=== PATIENT | male | born 1950 | race Caucasian/White ===

== ENCOUNTER 2019-05-03 11:02 | Inpatient (IN) ==
--- NOTE | 2019-05-03 11:25 | CT Scan Report ---
CT head/brain wo con CLINICAL HISTORY: 68 years-old Male presenting with Stroke evaluation. TECHNIQUE: Multidetector CT imaging of the head was performed without the use of intravenous contrast . IV contrast: None. One or more dose lowering techniques were used consistent with the principles of ALARA (as low as reasonably achievable), including automatic exposure control, mA or kV adjustment t o individual patient size, and/or use of iterative reconstruction. COMPARISON: None. CT DOSE (mGy.cm): The estimated cumulative dose is 614.27 mGy.cm. FINDINGS: Photograph Inspector topogram: Unremarkable. Ventricles and sulci normal in size. No hemorrhage. Brain parenchyma normal in appearance with preser nato lara-white differentiation. No acute territorial infarct. No mass effect or midline shift. No ext ra-axial fluid collection. Paranasal sinuses and mastoid air cells clear. Calvarium intact. IMPRESSION: 1. No acute intracranial abnormality. Electronically signed by: Christopher Hernandez M.D. 05/03/2019 11:23 AM
[2019-05-03] MEDS ORDERED: RECOMBINANT IV STA (11:28)
[2019-05-03] MEDS ORDERED: LABETALOL HCL IV 5 MG/ML 20ML IV STA ×2 (11:28→11:51)
[2019-05-03] MEDS ORDERED: ALTEPLASE IV STA (11:28)
[2019-05-03] MEDS ORDERED: ALTEPLASE For Stroke IV STA (11:31)
[2019-05-03 11:33] LABS: Basophils # (auto) 0.02 K/uL (0-0.2); Basophils % (auto) 0.2 %; Eosinophils # (auto) 0.06 K/uL (0-0.5); Eosinophils % (auto) 0.6 %; Hematocrit (blood only) 41.5 % (42-52); Hemoglobin 14.1 g/dL (14.0-18.0); Immature Granulocytes # (auto) 0.04 K/uL (0.00-0.02); Immature Granulocytes % (auto) 0.4 %; Lymphocytes # (auto) 2.25 K/uL (1.2-3.4); Lymphocytes % (auto) 23.4 %; Mean Platelet Volume 8.7 fL (7.4-10.4); Monocytes # (auto) 0.58 K/uL (0.11-0.59); Neutrophils # (auto) 6.66 K/uL (1.4-6.5); Neutrophils % (auto) 69.4 %; Platelet Count 420 K/uL (130-400); RDW Coefficient of Variation 13.9 % (11.5-14.5); RDW Standard Deviation 41.5 fL (36.4-46.3); Red Blood Count 5.06 M/uL (4.7-6.1); White Blood Count 9.61 K/uL (4.8-10.8)
[2019-05-03 11:43] LABS: INR 1.1 (0.9-1.1); Partial Thromboplastin Time 28.2 Seconds (21.0-31.0); Prothrombin Time 10.9 Seconds (9.0-12.0)
[2019-05-03] MEDS ORDERED: ALTEPLASE, RECOMBINANT 72 MG in EMPTY BAG 0 ML IV ONE (11:45)
[2019-05-03] MEDS ORDERED: RECOMBINANT IV ONE (11:45)
[2019-05-03] MEDS ORDERED: ALTEPLASE IV ONE (11:45)
[2019-05-03 11:51] LABS: Albumin Level 3.4 gm/dl (3.4-5.0); BUN Creatinine Ratio 14.5 (10-20); Calcium 9.7 mg/dl (8.5-10.1); Est GFR (African American) 99.3; Est GFR (Non-African American) 85.7; Magnesium 2.2 mg/dl (1.8-2.4)
[2019-05-03 11:58] LABS: Albumin Globulin Ratio 0.7 (0.9-2); Bilirubin,Total 0.4 mg/dl (0.2-1); Globulin 4.9 gm/dl (2.5-4.0); Total Protein 8.3 gm/dl (6.4-8.2); Troponin I 0.272 ng/ml (0-0.045)
[2019-05-03] MEDS ORDERED: OPTIRAY 320 125ml IV PRN (12:27)
--- NOTE | 2019-05-03 12:41 | CT Scan Report ---
CT angio head w con CLINICAL HISTORY: 68 years-old Male with ? cva. Acute strokelike symptoms COMPARISON STUDY: CT head and CTA head neck of same day TECHNIQUE: Following the IV administration of 120 cc of Optiray 320, CT angiogram of the brain was pe rformed from the skull base to the vertex. Images are reviewed in the axial, sagittal, and coronal pl anes. 3-D MIPS images are created and assessed. IV contrast was administered without complication. A dose lowering technique was utilized adhering to the principles of ALARA. CT DOSE: 595.63 mGy.cm FINDINGS: CT ANGIOGRAM OF THE BRAIN: The imaged bilateral internal carotid arteries are patent. Mild calcified plaque about the cavernous and clinoid segments of the bilateral internal carotid arteries and proximal portion of the right M1 segment without high-grade stenosis. The bilateral anterior and middle cerebral arteries are also pat ent. The vertebrobasilar system and posterior cerebral arteries are widely patent. There is no aneury sm, high-grade stenosis, or proximal branch occlusion identified. Dural sinuses appear patent. Densely noted is moderate polypoid mucosal thickening of the right maxillary sinus. Ex vacuo ventricu lomegaly changes with age-related involutional change. Punctate focus of air about the left cavernous sinus. IMPRESSION: Remarkable CTA of the head without aneurysm, dissection, high-grade stenosis or proximal branch occlusion. The above report was generated using voice recognition software. It may contain grammatical, syntax o r spelling errors. Electronically signed by: Francisco Ramos M.D. 05/03/2019 12:40 PM
--- NOTE | 2019-05-03 12:43 | CT Scan Report ---
NECK CTA HISTORY: Left facial droop. ? cva TECHNIQUE: Multiaxial CT images of the neck were performed following the intravenous administration o f contrast to evaluate the major cervical vessels. Maximum intensity projection images were also obta ined. All measurements were calculated based on NASCET criteria. A dose lowering technique was utili zed adhering to the principles of ALARA. COMPARISON STUDY: None. FINDINGS: The aortic arch and proximal great vessels are widely patent. The bilateral common carotid arteries and right internal carotid artery are widely patent. Mild calcified plaque within the bilat eral carotid bulbs. Approximately 30 % narrowing at the takeoff of the left internal carotid artery. However, the remaining left internal carotid artery is widely patent. Mild focal narrowing at the brooke gins of the bilateral vertebral arteries. The remaining vertebral arteries are widely patent. Mucosal thickening and a small fluid level within the right maxillary sinus. IMPRESSION: 1. Mild narrowing of approximately 30% at the takeoff of the left internal carotid artery. Otherwise, the remaining left internal carotid artery, right internal carotid artery, and bilateral common goldsmith tid arteries are widely patent. 2. Mild focal narrowing at the origins of the bilateral vertebral arteries. The remaining vertebral a rteries are patent. 3. Acute on chronic right maxillary sinusitis. Electronically signed by: Dean Arroyo M.D. 05/03/2019 12:42 PM
[2019-05-03 12:49] LABS: Lyme Ab IgG w/WB Rflx Negative (Negative); Lyme Ab IgM w/WB Rflx Negative (Negative)
[2019-05-03] MEDS ORDERED: PHARMACIST DISCHARGE MED REC CONSULT PRN (13:26)
--- NOTE | 2019-05-03 14:19 | Neurology Consultation ---
Date of Consultation May 03, 2019 Assessment & Plan (1) CVA (cerebral vascular accident): 1. CTA head and neck- no significant stenosis 2. TTE- pending read 3. MRI brain - evaluation area of stroke 4. tPa protocol - hold aspirin start for 24 hours/ repeat CT head 24 hours after tPa given 5. after 48 hours optimize HTN/HLD/ LDL <70 6. PT/OT speech for discharge needs 7. patient was not on aspirin prior to event- aspirin 81 mg and plavix 75 mg daily x 21 days then aspirin for a lifetime 8. will need cardiac monitoring as outpatient unless irregular rhythm is capture in patient further recommendations to follow Supervising Physician Co-Signing Physician Notes I have seen and discussed above patient with Dr Alexi Rodriguez, neurology I have seen, examined and interviewed this man and have reviewed his case with Prabha Jarvis along with her note above and have reviewed his imaging studies which include only CT imaging of his brain and extracranial intracranial circulation. He has been medically luis for about 4 years so it is not clear whether or not he has any significant pre-existing hypertension, dyslipidemia, glucose intolerance or other risk factors for could be small vessel disease episodic c ardiac arrhythmia or valvular disease Currently he has a left upper motor neuron facial paresis and mild dysarthria speech with no other demonstrable neurologic findings in the motor sphere and no sensory involvement or visual involvement He has received TPA and according to family members he is much improved from his status this morning when he presented to the emergency room with a fairly dense left upper motor neuron facial asymmetry and almost unintelligible speech Currently we will follow the standard post TPA protocol with imaging studies. 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 This is clearly a CVA likely involving the right hemisphere possibly localized to the right brainstem and management after TPA will probably consist of dual antiplatelet agents, obviously risk factor modification, to some degree of permissive hypertension until things clear up perhaps even a ZIO patch on an outpatient basis All this will become a little more clear with increasing time and the emergence of more diagnostic data Alexi Rodriguez MD History of Present Illness Reason for Consultation: CVA tPa administered Requesting Physician: Garfield Torre MD Attending Physician: Garfield Torre MD History of Present Illness Steven is a 68 year old male with no known medical issues (has not seen a MD in over 5 years). He was in his normal state of health when he woke this am. He went to work and started having difficulty speaking. He was on no chronic medications. He drove home and his brought him to the ED. A CT head and CTA head neck was ordered and there was not hemorrhage on scan. He arrived around 11a [place] [facility] [place] and he was administered tPa. He states the slurred speech has gotten better. he states family history of heart disease and stroke father in 80's. brother with heart disease on coumadin. He denies any one sided weakness, numbness tingling, vision changes, N, V, headache, bowel or bladder issues. Allergies Allergy/AdvReac Type Severity Reaction Status Date / Time No Known Allergies Allergy Mild Unverified 05/03/19 12:17 Home Medications Home Medications Medication Instructions Recorded Confirmed Type ibuprofen 200 mg PO QID PRN 05/03/19 05/03/19 History pseudoephedrine HCl [Sudafed] 30 mg PO Q6H PRN 05/03/19 05/03/19 History Patient History Medical History Hyperlipidemia (Chronic) Surgical History No pertinent past surgical history (Chronic) Family History Father Stroke, Onset Age: 82 Mother CHF (congestive heart failure) Other Heart disease No pertinent family history Social History Preferred Language: Mohawk Communication Ability: Effective Visual Impairment: No Limitations Hearing Ability: Normal Test Manager Required: No Beliefs That Will Affect Care: None marital status: marital status details: Current Living Situation: Spouse current occupational status: employed Other Information That Helps Us Care for You: No Feels Safe at Home: Yes Safety Concerns: Feels Safe At This Time Smoking Status: Never smoker Hx Alcohol Use: No Hx Substance Use: No Physical Exam Physical Exam: Physical Exam: Constitutional: appearance nourished, healthy and normal Ears, Nose, Mouth and Throat: mucous membranes moist, no injection and skin normal, eyes normal Cardiovascular: normal S-1 and S-2 and regular rate and rhythm Respiratory: clear to auscultation (CTA) and no rales, ronchi or wheeze Musculoskeletal: no peripheral edema and good distal pulses Skin: no stigmata of neurocutaneous disease noted and normal and intact Eyes: extraocular muscles intact (EOMI) and pupils equal, round and reactive to light (PERRL), no gross peripheral vision loss NEUROLOGIC EXAMINATION: Mental status: Alert and interactive Oriented to full date, [facility], know home address and and daughters name in room, 2019 Oriented to person Speech dysphasia Cranial Nerves left sided facial droop tongue slight deviation to left Reflexes: Deep tendon reflexes were symmetrical and graded 2/5. upgoing toes Sensory: no sensory deficits to light and cool touch Coordination: finger to nose no bi pass Gait/Stance: Posture lying in bed no issues with repositioning self Strength: biceps triceps hand precision lens polisher 5/5 bilaterally, hip flex plantar flex ext 5/5 bilaterally Results & Data Vital Signs (Past 12 Hours) Vital Signs Temp Pulse Pulse Resp BP BP Pulse Ox 05/03/19 13:55 98 H 18 192/105 H 98 05/03/19 13:40 36.8 C 87 18 186/95 H 95 05/03/19 13:38 36.8 C 90 18 194/113 H 97 05/03/19 13:26 87 16 193/104 H 97 05/03/19 13:25 36.8 C 87 16 193/104 H 97 05/03/19 12:55 36.5 C 83 23 162/89 H 95 05/03/19 12:54 83 21 96 05/03/19 12:53 83 21 96 05/03/19 12:52 83 25 H 97 05/03/19 12:50 80 20 165/86 H 95 05/03/19 12:49 81 22 96 05/03/19 12:48 81 15 98 05/03/19 12:47 79 23 96 05/03/19 12:46 80 19 155/85 H 97 05/03/19 12:45 77 19 96 05/03/19 12:44 73 24 97 05/03/19 12:43 73 16 97 05/03/19 12:42 76 24 97 05/03/19 12:41 72 23 96 05/03/19 12:40 75 18 158/89 H 95 05/03/19 12:39 76 18 97 05/03/19 12:38 75 22 95 05/03/19 12:37 78 21 05/03/19 12:36 73 167/87 H 05/03/19 12:20 175/98 H 96 05/03/19 12:18 68 17 95 05/03/19 12:17 71 16 96 05/03/19 12:16 70 20 96 05/03/19 12:15 78 18 181/113 H 96 05/03/19 12:14 71 28 H 96 05/03/19 12:13 72 24 96 05/03/19 12:12 71 20 190/119 H 96 05/03/19 12:11 68 20 96 05/03/19 12:10 71 18 97 05/03/19 12:09 72 22 96 05/03/19 12:08 71 21 193/105 H 96 05/03/19 12:07 70 25 H 189/106 H 97 05/03/19 12:06 69 18 96 05/03/19 12:04 70 18 194/107 H 95 05/03/19 12:03 72 18 192/114 H 96 05/03/19 12:02 70 26 H 178/124 H 95 05/03/19 12:01 67 24 182/104 H 95 05/03/19 12:00 66 23 94 05/03/19 11:59 68 22 186/105 H 95 05/03/19 11:58 68 22 96 05/03/19 11:57 67 19 96 05/03/19 11:56 69 13 96 05/03/19 11:55 68 18 96 05/03/19 11:54 67 24 94 05/03/19 11:53 65 27 H 95 05/03/19 11:52 64 16 96 05/03/19 11:51 69 18 95 05/03/19 11:50 68 21 168/94 H 96 05/03/19 11:49 67 25 H 95 05/03/19 11:48 69 17 192/104 H 05/03/19 11:47 71 20 188/124 H 05/03/19 11:46 71 23 05/03/19 11:45 72 19 06/05/19 11:44 66 68 23 192/111 H 192/111 H 95 05/03/19 11:43 68 15 05/03/19 11:42 69 26 H 05/03/19 11:41 73 24 05/03/19 11:40 72 24 193/106 H 05/03/19 11:39 85 30 H 195/117 H 05/03/19 11:38 72 26 H 201/119 H 95 05/03/19 11:31 75 22 206/123 H 97 05/03/19 11:30 75 75 24 206/123 H 97 05/03/19 11:25 79 21 97 05/03/19 11:24 75 24 218/109 H 96 05/03/19 11:22 74 77 25 H 220/119 H 220/119 H 95 05/03/19 11:11 77 24 220/119 H 96 05/03/19 11:04 84 18 227/111 H 97 Laboratory Results Abnormal lab results 05/03/19 05/03/19 05/03/19 Range/Units 11:17 11:17 11:24 Hct 41.5 L (42-52) % Plt Count 420 H (130-400) K/uL Immature Gran # (Auto) 0.04 H (0.00-0.02) K/uL Neut # (Auto) 6.66 H (1.4-6.5) K/uL Glucose 108 H (70-99) mg/dl POC Glucose 103 H (70-99) Troponin I 0.272 H* (0-0.045) ng/ml Total Protein 8.3 H (6.4-8.2) gm/dl Globulin 4.9 H (2.5-4.0) gm/dl Albumin/Globulin Ratio 0.7 L (0.9-2) Diagnostic Findings CT head- No acute intracranial abnormality. CTA head- Remarkable CTA of the head without aneurysm, dissection, high-grade stenosis or proximal branch occlusion. CTA neck- Mild narrowing of approximately 30% at the takeoff of the left internal carotid artery. Otherwise, the remaining left internal carotid artery, right internal carotid artery, and bilateral common carotid arteries are widely patent. Mild focal narrowing at the origins of the bilateral vertebral arteries. The remaining vertebral arteries are patent. Acute on chronic right maxillary sinusitis. (1) CVA (cerebral vascular accident) CVA mechanism: unspecified Qualified Code(s): I63.9 - Cerebral infarction, unspecified
--- NOTE | 2019-05-03 14:38 | History & Physical Report ---
Date of Service May 03, 2019 Assessment & Plan (1) CVA (cerebral vascular accident): (2) Hypertensive emergency: This is a 68-year-old male who has not seen a physician for over 5 years who presents to [facility] secondary to left facial numbness, left facial droop, and aphasia that began at 830am. Given the abrupt symptom onset stroke alert was initiated. He was noted to be significantly hypertensive SBP greater than 220. He received 2 doses of IV labetalol 10 mg and BP decreased to 168. TPA was recommended and was administered at approximately 11:54 AM. In ED CBC relatively unremarkable, PT/INR 1.1, CMP unremarkable except for glucose 108, troponin 0 0.[address] Head without acute abnormality CTA head and neck- no significant stenosis Pt admitted to ICU under TPA protocol TTE pending Likely will not be able to perform MRI secondary to patient significantly claustrophobic and very tearful, relating it back to when he was in [place] Repeat CT head w/o contrast in am tPa protocol - hold aspirin start for 24 hours/ repeat CT head 24 hours after tPa given after 48 hours optimize HTN/HLD/ LDL <70 Lipid panel, A1C in a.m. NPO until seen and evaluated by speech PT/OT/ST consulted Patient was not on aspirin prior to event- aspirin 81 mg and plavix 75 mg daily x 21 days then aspirin for a lifetime High intensity statin atorvastatin 40 mg daily when cleared by ST Cardiac monitoring as outpatient, ZIOpatch (3) Elevated troponin: likely in setting of HTN emergency Pt without cardiac complaints ECG unchanged Trend troponin every 6 hours and repeat ECG Echocardiogram pending (4) Acute sinusitis: CT neck reveals acute on chronic maxillary sinusitis Patient does report sinus congestion for the past 10 days which has slowly been improving. He has been taking [id number] Sudafed. He is afebrile and WBC WNL Will recommend course of amoxicillin when cleared by speech therapy (5) DVT prophylaxis: SCDS/TEDS Disposition: to be determined, case management consulted Follow up: PCP Dr. Salmeron upon discharge, patient has not been seen in approximately 5 years per patient He will also need appropriate neurology follow-up Patient was seen and examined in collaboration with Dr. Perrin, please see addendum Starting 05/04/19 pt will be under the care of Dr. Torre History of Present Illness Chief Complaint: L facial numbness, facial droop and apashia starting at 8:30am Primary Care Provider: Tamir Salmeron MD This is a 68-year-old male who has not seen a physician for over 5 years who presents to [facility] secondary to left facial numbness, left facial droop, and aphasia that began at 830am. He denies any significant past medical history. At approximately 830am patient noticed some left facial numbness. He opted to present to work and developed significant postnasal drip and he was unable to clear it. Tongue also felt numb. Given symptoms he opted to drive himself home. This is when he noticed a left facial droop and noted garbled speech. He did not have any upper or lower extremity weakness or loss of bowel or bladder. He has otherwise been healthy except he does elicit for the past 10 days he has been having sinus congestion which has improved. He has been taking [id number], Sudafed, for symptom relief. He states approximately 1 month ago he had similar symptoms of left facial numbness that lasted 20 minutes but then resolved. "I didn't think anything of it." He states he took approximately 6 pills a day. He denies smoking, alcohol or ill icit drug use. 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 Given the abrupt symptom onset stroke alert was initiated. He was noted to be significantly hypertensive SBP greater than 220. He received 2 doses of IV labetalol 10 mg and BP decreased to 168. TPA was recommended and was administered at approximately 11:54 AM. Allergies Allergy/AdvReac Type Severity Reaction Status Date / Time No Known Allergies Allergy Mild Unverified 05/03/19 12:17 Home Medications Home Medications Medication Instructions Recorded Confirmed Type ibuprofen 200 mg PO QID PRN 05/03/19 05/03/19 History pseudoephedrine HCl [Sudafed] 30 mg PO Q6H PRN 05/03/19 05/03/19 History Past Med/Surg History Medical History Hyperlipidemia (Chronic) Surgical History No pertinent past surgical history (Chronic) Family History Father Stroke, Onset Age: 82 Mother CHF (congestive heart failure) Other Heart disease No pertinent family history Social History Preferred Language: Romanian Communication Ability: Effective Visual Impairment: No Limitations Hearing Ability: Normal 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 Physical Exam Physical Exam: Gen: WD/WN, M, NAD, sitting up in bed, pleasant but tearful, conversing easily, notable L facial droop which improved during exam but not resolved Head: Normocephalic, Atraumatic Eyes: Sclera normal, no conjunctival injection, PERRLA, EOMI ENT: Gross hearing intact, normal pharynx, mucous membranes moist Neck: supple, no adenopathy, No JVD, no bruit, Resp: Clear to auscultation b/l, no wheeze, rales, rhonchi. 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 Extremities: No edema bilaterally Skin: warm, moist, no rash, negative turgor, cap refill < 2sec Neuro: Alert and oriented x 3, speech normal, L facial droop, good mood/affect, cran nerve 2-12 intact grossly : deferred Results & Data Vital Signs (Past 12 Hours) Vital Signs Temp Pulse Pulse Resp BP BP Pulse Ox 05/03/19 14:16 95 H 183/98 H 98 05/03/19 14:10 107 H 18 207/99 H 99 05/03/19 13:55 98 H 18 192/105 H 98 05/03/19 13:40 36.8 C 87 18 186/95 H 95 05/03/19 13:38 36.8 C 90 18 194/113 H 97 05/03/19 13:26 87 16 193/104 H 97 05/03/19 13:25 36.8 C 87 16 193/104 H 97 05/03/19 12:55 36.5 C 83 23 162/89 H 95 05/03/19 12:54 83 21 96 05/03/19 12:53 83 21 96 05/03/19 12:52 83 25 H 97 05/03/19 12:50 80 20 165/86 H 95 05/03/19 12:49 81 22 96 05/03/19 12:48 81 15 98 05/03/19 12:47 79 23 96 05/03/19 12:46 80 19 155/85 H 97 05/03/19 12:45 77 19 96 05/03/19 12:44 73 24 97 05/03/19 12:43 73 16 97 05/03/19 12:42 76 24 97 05/03/19 12:41 72 23 96 05/03/19 12:40 75 18 158/89 H 95 05/03/19 12:39 76 18 97 05/03/19 12:38 75 22 95 05/03/19 12:37 78 21 05/03/19 12:36 73 167/87 H 05/03/19 12:20 175/98 H 96 05/03/19 12:18 68 17 95 05/03/19 12:17 71 16 96 05/03/19 12:16 70 20 96 05/03/19 12:15 78 18 181/113 H 96 05/03/19 12:14 71 28 H 96 05/03/19 12:13 72 24 96 05/03/19 12:12 71 20 190/119 H 96 05/03/19 12:11 68 20 96 05/03/19 12:10 71 18 97 05/03/19 12:09 72 22 96 05/03/19 12:08 71 21 193/105 H 96 05/03/19 12:07 70 25 H 189/106 H 97 05/03/19 12:06 69 18 96 05/03/19 12:04 70 18 194/107 H 95 05/03/19 12:03 72 18 192/114 H 96 05/03/19 12:02 70 26 H 178/124 H 95 05/03/19 12:01 67 24 182/104 H 95 05/03/19 12:00 66 23 94 05/03/19 11:59 68 22 186/105 H 95 05/03/19 11:58 68 22 96 05/03/19 11:57 67 19 96 05/03/19 11:56 69 13 96 05/03/19 11:55 68 18 96 05/03/19 11:54 67 24 94 05/03/19 11:53 65 27 H 95 05/03/19 11:52 64 16 96 05/03/19 11:51 69 18 95 05/03/19 11:50 68 21 168/94 H 96 05/03/19 11:49 67 25 H 95 05/03/19 11:48 69 17 192/104 H 05/03/19 11:47 71 20 188/124 H 05/03/19 11:46 71 23 05/03/19 11:45 72 19 05/03/19 11:44 66 68 23 192/111 H 192/111 H 95 05/03/19 11:43 68 15 05/03/19 11:42 69 26 H 05/03/19 11:41 73 24 05/03/19 11:40 72 24 193/106 H 05/03/19 11:39 85 30 H 195/117 H 05/03/19 11:38 72 26 H 201/119 H 95 05/03/19 11:31 75 22 206/123 H 97 05/03/19 11:30 75 75 24 206/123 H 97 05/03/19 11:25 79 21 97 05/03/19 11:24 75 24 218/109 H 96 05/03/19 11:22 74 77 25 H 220/119 H 220/119 H 95 05/03/19 11:11 77 24 220/119 H 96 05/03/19 11:04 84 18 227/111 H 97 Laboratory Results Short CBC 05/03/19 Range/Units 11:17 WBC 9.61 (4.8-10.8) K/uL Hgb 14.1 (14.0-18.0) g/dL Hct 41.5 L (42-52) % Plt Count 420 H (130-400) K/uL BMP 05/03/19 11:17 Sodium 141 Potassium 4.0 Chloride 105 Carbon Dioxide 29 BUN 13 Creatinine 0.91 Glucose 108 H Calcium 9.7 Cardiac Enzymes 05/03/19 Range/Units 11:17 Troponin I 0.272 H* (0-0.045) ng/ml Liver Function 05/03/19 Range/Units 11:17 Total Bilirubin 0.4 (0.2-1) mg/dl AST 18 (15-37) U/L ALT 30 (12-78) U/L Alkaline Phosphatase 99 (45-117) U/L Albumin 3.4 (3.4-5.0) gm/dl Diagnostic Findings CT head- No acute intracranial abnormality. CTA head- Remarkable CTA of the head without aneurysm, dissection, high-grade stenosis or proximal branch occlusion. CTA neck- Mild narrowing of approximately 30% at the takeoff of the left internal carotid artery. Otherwise, the remaining left internal carotid artery, right internal carotid artery, and bilateral common carotid arteries are widely patent. Mild focal narrowing at the origins of the bilateral vertebral arteries. The remaining vertebral arteries are patent. Acute on chronic right maxillary sinusitis. Medications Administered Nicardipine HCl 25 mg/ Sodium (Chloride) 250 mls @ 100 mls/hr IV .Q2H30M DARYL; Protocol Stop: 06/02/19 11:59 Last Titration: 05/03/19 14:36 Dose: 7.5 mg/hr, 75 mls/hr Documented by: [id number] Titration: 05/03/19 14:12 Dose: 10 mg/hr, 100 mls/hr Documented by: [id number] Titration: 05/03/19 13:45 Dose: 7.5 mg/hr, 75 mls/hr Documented by: [id number] Admin: 05/03/19 12:11 Dose: 5 mg/hr, 50 mls/hr Documented by: [id number] Cosigned by: [id number] Ioversol (Optiray 320 125ml) 120 ml IV ONCE PRN PRN Reason: Interaction Checking Stop: 05/07/19 12:26 Last Admin: 05/03/19 12:28 Dose: 120 ml Documented by: [id number] Discontinued Medications Alteplase, Recombinant 72 mg/ (EMPTY BAG) 72 mls @ 72 mls/hr IV NOW ONE; Protocol Stop: 05/03/19 12:44 Last Infusion: 05/03/19 12:58 Dose: 0 mls/hr Documented by: [id number] Cosigned by: [id number] Admin: 05/03/19 11:58 Dose: 72 mls/hr Documented by: [id number] Cosigned by: [id number] Alteplase, Recombinant 8 mg/ (Syringe) 8 mls @ 8 mls/min IV NOW ONE Stop: 05/03/19 11:46 Last Admin: 05/03/19 11:53 Dose: 8 mls/min Documented by: [id number] Cosigned by: [id number] Labetalol HCl (Normodyne) 10 mg IV NOW STA Stop: 05/03/19 11:29 Last Admin: 05/03/19 11:35 Dose: 10 mg Documented by: [id number] Cosigned by: [id number] Labetalol HCl (Normodyne) 10 mg IV NOW STA Stop: 05/03/19 11:52 Last Admin: 05/03/19 11:47 Dose: 10 mg Documented by: [id number] Cosigned by: [id number] ECG Rhythm: normal sinus Code Status & VTE Plan Code Status Full Code VTE Prophylaxis Plan VTE Prophylaxis will be ordered: Yes Reason for no VTE drug order: Contraindicated Supervising Physician Co-Signing Physician Notes Patient is a 68-year-old male with no significant past medical history presents with history of sudden onset of left-sided facial numbness, facial droop and aphasia which started at around 8:30 AM this morning. Also reported tongue numbness. Denies any associated weakness in extremities. CT head showed no acute intracranial abnormality. Neck CTA suggestive of acute on chronic right maxillary sinusitis. Also showed mild narrowing of approximately 30% of the left internal carotid artery; mild focal narrowing of the origins of the bilateral vertebral arteries. CTA head was unremarkable. Patient received TPA while in ED. His speech, left-sided facial droop slightly improved while in ED. On exam patient is moderately built and nourished, no apparent distress,+ left facial droop, grossly no focal deficits otherwise; lungs are clear to auscultation, S1-S2, no murmur, no pedal edema. Patient is claustrophobic and does not prefer to get an MRI of the brain. Patient is admitted in ICU for management of acute CVA status post TPA. Plan to start on aspirin, Plavix as per neurology when appropriate. Started on Lipitor. Check Echo, neurology consulted. Appreciate input. Repeat CT head in 24 hours. Mild troponin elevation likely due to hypertension urgency. Optimize blood pressure control. Consider p.o. Augmentin for acute sinusitis. PT/OT. I personally reviewed the record. Patient is interviewed and examined at bedside. Patient's care is coordinated with Charisse Robbins PA-C. Please refer to the documentation above for details of patient's presentation and for discussion of other issues. (1) CVA (cerebral vascular accident) CVA mechanism: unspecified Qualified Code(s): I63.9 - Cerebral infarction, unspecified
--- NOTE | 2019-05-03 14:58 | Emergency Department Note ---
Entered by Saranya Espinoza acting as a scribe for History of Present Illness General Chief complaint: TIA Symptoms Stated complaint: MAYBE STROKE Source: patient Mode of arrival: ambulatory Limitations: no limitations History of Present Illness Onset (ago): hour(s) (0820) Location: head (TIA symptoms ) Associated symptoms: + other (Per , the patient had a left sided facial drop, inability to swallow, and slurred speech. The patient complains of left sided lip numbness that is slightly resolved.) The patient is a 68 year old male with a history of hyperlipidemia who presents to the ED with complaints of an episode of TIA symptoms that onset at 0820. The patient presents with his . He states that he woke up to go to work when the symptoms onset. She states that they went to Urgent Care this morning. Per , the patient had a left sided facial drop, inability to swallow, and slurred speech. She notes that his condition is now improving. The patient denies difficulty closing his eyes and changes in vision. He notes that his lips are slightly less numb. Patient denies any other medical problems. He does believe that the symptoms are improving as well. Home Medications Home Medications Medication Instructions Recorded Confirmed Type ibuprofen 200 mg PO QID PRN 05/03/19 05/03/19 History pseudoephedrine HCl [Sudafed] 30 mg PO Q6H PRN 05/03/19 05/03/19 History Allergies Allergy/AdvReac Type Severity Reaction Status Date / Time No Known Allergies Allergy Mild Unverified 05/03/19 12:17 Past Med/Surg History Medical History Hyperlipidemia (Chronic) Surgical History No pertinent past surgical history (Chronic) Family History Father Stroke, Onset Age: 82 Mother CHF (congestive heart failure) Other Heart disease No pertinent family history Social History Preferred Language: Iranian Communication Ability: Effective Visual Impairment: No Limitations Hearing Ability: Normal Chiropractic Neurologist Required: No Beliefs That Will Affect Care: None marital status: marital status details: Current Living Situation: Spouse current occupational status: employed Other Information That Helps Us Care for You: No Feels Safe at Home: Yes Safety Concerns: Feels Safe At This Time Smoking Status: Never smoker Hx Alcohol Use: No Hx Substance Use: No Review of Systems See HPI for pertinent positives & negatives. and A total of 10 systems reviewed and were otherwise negative Physical Exam Vital Signs Vital Signs - 24 hr 05/03/19 11:04 05/03/19 11:11 05/03/19 11:22 Sepsis Recent Fever Within 48 Hours No Sepsis Action Taken by Nursing No Action Required Pulse Rate 84 74 Pulse Rate [Apical] 77 77 Pulse Rate from SpO2 Sensor 75 Pulse Rhythm [Apical] Regular Regular Pulse Strength [Apical] Normal Normal Respiratory Rate 18 24 25 H Respiratory Effort / Characteristics Non-Labored Spontaneous Non-Labored Spontaneous Respiratory Depth Normal Normal Respiratory Pattern Regular Regular Blood Pressure 227/111 H 220/119 H Blood Pressure [Left Arm] 220/119 H 220/119 H Blood Pressure Mean 149 152 Blood Pressure Mean [Left Arm] 152 152 Blood Pressure Position Sitting Blood Pressure Position [Left Arm] Lying Lying Pulse Oximetry 97 96 95 Oxygen Delivery Method Room Air Room Air 05/03/19 11:24 05/03/19 11:25 05/03/19 11:30 Sepsis Recent Fever Within 48 Hours Sepsis Action Taken by Nursing Pulse Rate 75 79 75 Pulse Rate [Apical] 75 Pulse Rate from SpO2 Sensor 75 80 75 Pulse Rhythm [Apical] Regular Pulse Strength [Apical] Normal Respiratory Rate 24 21 24 Respiratory Effort / Characteristics Non-Labored Spontaneous Respiratory Depth Normal Respiratory Pattern Regular Blood Pressure 218/109 H Blood Pressure [Left Arm] 206/123 H Blood Pressure Mean 145 Blood Pressure Mean [Left Arm] 150 Blood Pressure Position Blood Pressure Position [Left Arm] Lying Pulse Oximetry 96 97 97 Oxygen Delivery Method Room Air 05/03/19 11:31 05/03/19 11:38 05/03/19 11:39 Sepsis Recent Fever Within 48 Hours Sepsis Action Taken by Nursing Pulse Rate 75 72 85 Pulse Rate [Apical] Pulse Rate from SpO2 Sensor 75 78 Pulse Rhythm [Apical] Pulse Strength [Apical] Respiratory Rate 22 26 H 30 H Respiratory Effort / Characteristics Respiratory Depth Respiratory Pattern Blood Pressure 206/123 H 201/119 H 195/117 H Blood Pressure [Left Arm] Blood Pressure Mean 150 146 143 Blood Pressure Mean [Left Arm] Blood Pressure Position Blood Pressure Position [Left Arm] Pulse Oximetry 97 95 Oxygen Delivery Method 05/03/19 11:40 05/03/19 11:41 05/03/19 11:42 Sepsis Recent Fever Within 48 Hours Sepsis Action Taken by Nursing Pulse Rate 72 73 69 Pulse Rate [Apical] Pulse Rate from SpO2 Sensor Pulse Rhythm [Apical] Pulse Strength [Apical] Respiratory Rate 24 24 26 H Respiratory Effort / Characteristics Respiratory Depth Respiratory Pattern Blood Pressure 193/106 H Blood Pressure [Left Arm] Blood Pressure Mean 135 Blood Pressure Mean [Left Arm] Blood Pressure Position Blood Pressure Position [Left Arm] Pulse Oximetry Oxygen Delivery Method 05/03/19 11:43 05/03/19 11:44 05/03/19 11:45 Sepsis Recent Fever Within 48 Hours Sepsis Action Taken by Nursing Pulse Rate 68 66 72 Pulse Rate [Apical] 68 Pulse Rate from SpO2 Sensor Pulse Rhythm [Apical] Regular Pulse Strength [Apical] Normal Respiratory Rate 15 23 19 Respiratory Effort / Characteristics Non-Labored Spontaneous Respiratory Depth Normal Respiratory Pattern Regular Blood Pressure 192/111 H Blood Pressure [Left Arm] 192/111 H Blood Pressure Mean 138 Blood Pressure Mean [Left Arm] 138 Blood Pressure Position Blood Pressure Position [Left Arm] Lying Pulse Oximetry 95 Oxygen Delivery Method Room Air 05/03/19 11:46 05/03/19 11:47 05/03/19 11:48 Sepsis Recent Fever Within 48 Hours Sepsis Action Taken by Nursing Pulse Rate 71 71 69 Pulse Rate [Apical] Pulse Rate from SpO2 Sensor Pulse Rhythm [Apical] Pulse Strength [Apical] Respiratory Rate 23 20 17 Respiratory Effort / Characteristics Respiratory Depth Respiratory Pattern Blood Pressure 188/124 H 192/104 H Blood Pressure [Left Arm] Blood Pressure Mean 145 133 Blood Pressure Mean [Left Arm] Blood Pressure Position Blood Pressure Position [Left Arm] Pulse Oximetry Oxygen Delivery Method 05/03/19 11:49 05/03/19 11:50 05/03/19 11:51 Sepsis Recent Fever Within 48 Hours Sepsis Action Taken by Nursing Pulse Rate 67 68 69 Pulse Rate [Apical] Pulse Rate from SpO2 Sensor 69 68 69 Pulse Rhythm [Apical] Pulse Strength [Apical] Respiratory Rate 25 H 21 18 Respiratory Effort / Characteristics Respiratory Depth Respiratory Pattern Blood Pressure 168/94 H Blood Pressure [Left Arm] Blood Pressure Mean 118 Blood Pressure Mean [Left Arm] Blood Pressure Position Blood Pressure Position [Left Arm] Pulse Oximetry 95 96 95 Oxygen Delivery Method 05/03/19 11:52 05/03/19 11:53 05/03/19 11:54 Sepsis Recent Fever Within 48 Hours Sepsis Action Taken by Nursing Pulse Rate 64 65 67 Pulse Rate [Apical] Pulse Rate from SpO2 Sensor 64 65 66 Pulse Rhythm [Apical] Pulse Strength [Apical] Respiratory Rate 16 27 H 24 Respiratory Effort / Characteristics Respiratory Depth Respiratory Pattern Blood Pressure Blood Pressure [Left Arm] Blood Pressure Mean Blood Pressure Mean [Left Arm] Blood Pressure Position Blood Pressure Position [Left Arm] Pulse Oximetry 96 95 94 Oxygen Delivery Method 05/03/19 11:55 05/03/19 11:56 05/03/19 11:57 Sepsis Recent Fever Within 48 Hours Sepsis Action Taken by Nursing Pulse Rate 68 69 67 Pulse Rate [Apical] Pulse Rate from SpO2 Sensor 67 69 68 Pulse Rhythm [Apical] Pulse Strength [Apical] Respiratory Rate 18 13 19 Respiratory Effort / Characteristics Respiratory Depth Respiratory Pattern Blood Pressure Blood Pressure [Left Arm] Blood Pressure Mean Blood Pressure Mean [Left Arm] Blood Pressure Position Blood Pressure Position [Left Arm] Pulse Oximetry 96 96 96 Oxygen Delivery Method 05/03/19 11:58 05/03/19 11:59 05/03/19 12:00 Sepsis Recent Fever Within 48 Hours Sepsis Action Taken by Nursing Pulse Rate 68 68 66 Pulse Rate [Apical] Pulse Rate from SpO2 Sensor 68 68 67 Pulse Rhythm [Apical] Pulse Strength [Apical] Respiratory Rate 22 22 23 Respiratory Effort / Characteristics Respiratory Depth Respiratory Pattern Blood Pressure 186/105 H Blood Pressure [Left Arm] Blood Pressure Mean 132 Blood Pressure Mean [Left Arm] Blood Pressure Position Blood Pressure Position [Left Arm] Pulse Oximetry 96 95 94 Oxygen Delivery Method 05/03/19 12:01 05/03/19 12:02 05/03/19 12:03 Sepsis Recent Fever Within 48 Hours Sepsis Action Taken by Nursing Pulse Rate 67 70 72 Pulse Rate [Apical] Pulse Rate from SpO2 Sensor 68 70 72 Pulse Rhythm [Apical] Pulse Strength [Apical] Respiratory Rate 24 26 H 18 Respiratory Effort / Characteristics Respiratory Depth Respiratory Pattern Blood Pressure 182/104 H 178/124 H 192/114 H Blood Pressure [Left Arm] Blood Pressure Mean 130 142 140 Blood Pressure Mean [Left Arm] Blood Pressure Position Blood Pressure Position [Left Arm] Pulse Oximetry 95 95 96 Oxygen Delivery Method 05/03/19 12:04 05/03/19 12:06 05/03/19 12:07 Sepsis Recent Fever Within 48 Hours Sepsis Action Taken by Nursing Pulse Rate 70 69 70 Pulse Rate [Apical] Pulse Rate from SpO2 Sensor 71 72 71 Pulse Rhythm [Apical] Pulse Strength [Apical] Respiratory Rate 18 18 25 H Respiratory Effort / Characteristics Respiratory Depth Respiratory Pattern Blood Pressure 194/107 H 189/106 H Blood Pressure [Left Arm] Blood Pressure Mean 136 133 Blood Pressure Mean [Left Arm] Blood Pressure Position Blood Pressure Position [Left Arm] Pulse Oximetry 95 96 97 Oxygen Delivery Method 05/03/19 12:08 05/03/19 12:09 05/03/19 12:10 Sepsis Recent Fever Within 48 Hours Sepsis Action Taken by Nursing Pulse Rate 71 72 71 Pulse Rate [Apical] Pulse Rate from SpO2 Sensor 72 72 70 Pulse Rhythm [Apical] Pulse Strength [Apical] Respiratory Rate 21 22 18 Respiratory Effort / Characteristics Respiratory Depth Respiratory Pattern Blood Pressure 193/105 H Blood Pressure [Left Arm] Blood Pressure Mean 134 Blood Pressure Mean [Left Arm] Blood Pressure Position Blood Pressure Position [Left Arm] Pulse Oximetry 96 96 97 Oxygen Delivery Method 05/03/19 12:11 05/03/19 12:12 05/03/19 12:13 Sepsis Recent Fever Within 48 Hours Sepsis Action Taken by Nursing Pulse Rate 68 71 72 Pulse Rate [Apical] Pulse Rate from SpO2 Sensor 69 70 74 Pulse Rhythm [Apical] Pulse Strength [Apical] Respiratory Rate 20 20 24 Respiratory Effort / Characteristics Respiratory Depth Respiratory Pattern Blood Pressure 190/119 H Blood Pressure [Left Arm] Blood Pressure Mean 142 Blood Pressure Mean [Left Arm] Blood Pressure Position Blood Pressure Position [Left Arm] Pulse Oximetry 96 96 96 Oxygen Delivery Method 05/03/19 12:14 05/03/19 12:15 05/03/19 12:16 Sepsis Recent Fever Within 48 Hours Sepsis Action Taken by Nursing Pulse Rate 71 78 70 Pulse Rate [Apical] Pulse Rate from SpO2 Sensor 70 71 70 Pulse Rhythm [Apical] Pulse Strength [Apical] Respiratory Rate 28 H 18 20 Respiratory Effort / Characteristics Respiratory Depth Respiratory Pattern Blood Pressure 181/113 H Blood Pressure [Left Arm] Blood Pressure Mean 135 Blood Pressure Mean [Left Arm] Blood Pressure Position Blood Pressure Position [Left Arm] Pulse Oximetry 96 96 96 Oxygen Delivery Method 05/03/19 12:17 05/03/19 12:18 Sepsis Recent Fever Within 48 Hours Sepsis Action Taken by Nursing Pulse Rate 71 68 Pulse Rate [Apical] Pulse Rate from SpO2 Sensor 71 68 Pulse Rhythm [Apical] Pulse Strength [Apical] Respiratory Rate 16 17 Respiratory Effort / Characteristics Respiratory Depth Respiratory Pattern Blood Pressure Blood Pressure [Left Arm] Blood Pressure Mean Blood Pressure Mean [Left Arm] Blood Pressure Position Blood Pressure Position [Left Arm] Pulse Oximetry 96 95 Oxygen Delivery Method GENERAL: Sitting up in bed, disheveled, obvious left sided facial droop noted, no acute distress, non-toxic EYE EXAM: Normal conjunctiva. OROPHARYNX: no exudate, no erythema, lips, buccal mucosa, and tongue normal and mucous membranes are moist NECK: supple, no nuchal rigidity, no adenopathy, non-tender LUNGS: Clear to auscultation. Normal chest wall mechanics HEART: no murmurs, S1 normal and S2 normal ABDOMEN: abdomen soft, non-tender, normo-active bowel sounds, no masses, no rebound or guarding. BACK: Back is symmetrical on inspection and there is no deformity, no midline tenderness, no CVA tenderness. SKIN: no rashes and no bruising UPPER EXTREMITIES: upper extremities are grossly normal. LOWER EXTREMITIES: No pitting edema. NEURO EXAM: Able to wrinkle forehead, close left eye, left sided facial droop, tongue deviates to the left, garbled speech, no weakness in upper or lower extremities, no drift, finger to nose intact. Course 1107: The patient was taken from triage into CT Scan prior to evaluation. Protocol orders were not in place so the patient went to scan without evaluatio n. 1116: I reviewed the patient's case with Dr. Natalya Lagos [place]. 1117: Past medical records reviewed. The patient was evaluated in room A01. A complete history and physical examination was performed. 1125: I reviewed the patient's case with Dr. Natalya [facility]. 1130: TPA has been mixed. 1201: I reviewed the patient's case with Dr. Aydin Adair. He will evaluate the patient for further management. 1208: The patient is doing okay. There are no changes. Consultations Consultation #1: 1116: I reviewed the patient's case with Dr. Natalya Lagos [place]. Time: 11:16 Consultation #2: 1125: I reviewed the patient's case with Dr. Natalya Johnson. Time: 11:25 Consultation #3: 1201: I reviewed the patient's case with Dr. Aydin Adair. He will evaluate the patient for further management. Time: 12:01 Administered Medications Nicardipine HCl 25 mg/ Sodium (Chloride) 250 mls @ 75 mls/hr IV .[id number] DARYL; Protocol Stop: 06/02/19 11:59 Last Titration: 05/03/19 14:36 Dose: 7.5 mg/hr, 75 mls/hr Documented by: [id number] Titration: 05/03/19 14:12 Dose: 10 mg/hr, 100 mls/hr Documented by: [id number] Titration: 05/03/19 13:45 Dose: 7.5 mg/hr, 75 mls/hr Documented by: [id number] Admin: 05/03/19 12:11 Dose: 5 mg/hr, 50 mls/hr Documented by: [id number] Cosigned by: [id number] Ioversol (Optiray 320 125ml) 120 ml IV ONCE PRN PRN Reason: Interaction Checking Stop: 05/07/19 12:26 Last Admin: 05/03/19 12:28 Dose: 120 ml Documented by: [id number] Discontinued Medications Alteplase, Recombinant 72 mg/ (EMPTY BAG) 72 mls @ 72 mls/hr IV NOW ONE; Protocol Stop: 05/03/19 12:44 Last Infusion: 05/03/19 12:58 Dose: 0 mls/hr Documented by: [id number] Cosigned by: [id number] Admin: 05/03/19 11:58 Dose: 72 mls/hr Documented by: [id number] Cosigned by: [id number] Alteplase, Recombinant 8 mg/ (Syringe) 8 mls @ 8 mls/min IV NOW ONE Stop: 05/03/19 11:46 Last Admin: 05/03/19 11:53 Dose: 8 mls/min Documented by: [id number] Cosigned by: [id number] Labetalol HCl (Normodyne) 10 mg IV NOW STA Stop: 05/03/19 11:29 Last Admin: 05/03/19 11:35 Dose: 10 mg Documented by: [id number] Cosigned by: [id number] Labetalol HCl (Normodyne) 10 mg IV NOW STA Stop: 05/03/19 11:52 Last Admin: 05/03/19 11:47 Dose: 10 mg Documented by: [id number] Cosigned by: [id number] Medical Decision Making Differential Diagnosis Differential diagnoses: Ischemic Stroke, hemorrhagic stroke, bells palsy, mass, neoplasm, migraine headache, seizure, subarachnoid hemorrhage, TIA, and transient global amnesia. Medical Records Attestation: I reviewed the patient's medical records. Home Medications Current Medication List: was personally reviewed by me Laboratory Data Attestation: I reviewed the patient's lab results. Result diagrams: 05/03/19 11:17 05/03/19 11:17 Lab Results 05/03/19 05/03/19 05/03/19 Range/Units 11:17 11:17 11:17 WBC 9.61 (4.8-10.8) K/uL RBC 5.06 (4.7-6.1) M/uL Hgb 14.1 (14.0-18.0) g/dL Hct 41.5 L (42-52) % MCV 82.0 (80-100) fL MCH 27.9 (25-34) pg MCHC 34.0 (32-36) g/dL RDW Std Deviation 41.5 (36.4-46.3) fL RDW Coeff of Gianfranco 13.9 (11.5-14.5) % Plt Count 420 H (130-400) K/uL MPV 8.7 (7.4-10.4) fL Immature Gran % (Auto) 0.4 % Neut % (Auto) 69.4 % Lymph % (Auto) 23.4 % [place] % (Auto) 6.0 % Eos % (Auto) 0.6 % Baso % (Auto) 0.2 % Immature Gran # (Auto) 0.04 H (0.00-0.02) K/uL Neut # (Auto) 6.66 H (1.4-6.5) K/uL Lymph # (Auto) 2.25 (1.2-3.4) K/uL [place] # (Auto) 0.58 (0.11-0.59) K/uL Eos # (Auto) 0.06 (0-0.5) K/uL Baso # (Auto) 0.02 (0-0.2) K/uL PT 10.9 (9.0-12.0) Seconds INR 1.1 (0.9-1.1) APTT 28.2 (21.0-31.0) Seconds PTT Ratio 1.0 Sodium 141 (136-145) mmol/L Potassium 4.0 (3.5-5.1) mmol/L Chloride 105 (98-107) mmol/L Carbon Dioxide 29 (21-32) mmol/L Anion Gap 7.0 (3-11) BUN 13 (7-18) mg/dl Creatinine 0.91 (0.6-1.4) mg/dl Est Cr Clr Drug Dosing 86.0 ml/min Est GFR ( Amer) 99.3 Est GFR (Non-Af Amer) 85.7 BUN/Creatinine Ratio 14.5 (10-20) Glucose 108 H (70-99) mg/dl POC Glucose (70-99) Calcium 9.7 (8.5-10.1) mg/dl Magnesium 2.2 (1.8-2.4) mg/dl Total Bilirubin 0.4 (0.2-1) mg/dl AST 18 (15-37) U/L ALT 30 (12-78) U/L Alkaline Phosphatase 99 (45-117) U/L Troponin I 0.272 H* (0-0.045) ng/ml Total Protein 8.3 H (6.4-8.2) gm/dl Albumin 3.4 (3.4-5.0) gm/dl Globulin 4.9 H (2.5-4.0) gm/dl Albumin/Globulin Ratio 0.7 L (0.9-2) Lyme Disease IgG Ab (Negative) Lyme Disease IgM Ab (Negative) Blood Type Antibody Screen 05/03/19 05/03/19 05/03/19 Range/Units 11:17 11:24 11:25 WBC (4.8-10.8) K/uL RBC (4.7-6.1) M/uL Hgb (14.0-18.0) g/dL Hct (42-52) % MCV (80-100) fL MCH (25-34) pg MCHC (32-36) g/dL RDW Std Deviation (36.4-46.3) fL RDW Coeff of Gianfranco (11.5-14.5) % Plt Count (130-400) K/uL MPV (7.4-10.4) fL Immature Gran % (Auto) % Neut % (Auto) % Lymph % (Auto) % [place] % (Auto) % Eos % (Auto) % Baso % (Auto) % Immature Gran # (Auto) (0.00-0.02) K/uL Neut # (Auto) (1.4-6.5) K/uL Lymph # (Auto) (1.2-3.4) K/uL [place] # (Auto) (0.11-0.59) K/uL Eos # (Auto) (0-0.5) K/uL Baso # (Auto) (0-0.2) K/uL PT (9.0-12.0) Seconds INR (0.9-1.1) APTT (21.0-31.0) Seconds PTT Ratio Sodium (136-145) mmol/L Potassium (3.5-5.1) mmol/L Chloride (98-107) mmol/L Carbon Dioxide (21-32) mmol/L Anion Gap (3-11) BUN (7-18) mg/dl Creatinine (0.6-1.4) mg/dl Est Cr Clr Drug Dosing ml/min Est GFR ( Amer) Est GFR (Non-Af Amer) BUN/Creatinine Ratio (10-20) Glucose (70-99) mg/dl POC Glucose 103 H (70-99) Calcium (8.5-10.1) mg/dl Magnesium (1.8-2.4) mg/dl Total Bilirubin (0.2-1) mg/dl AST (15-37) U/L ALT (12-78) U/L Alkaline Phosphatase (45-117) U/L Troponin I (0-0.045) ng/ml Total Protein (6.4-8.2) gm/dl Albumin (3.4-5.0) gm/dl Globulin (2.5-4.0) gm/dl Albumin/Globulin Ratio (0.9-2) Lyme Disease IgG Ab Negative (Negative) Lyme Disease IgM Ab Negative (Negative) Blood Type AB Positive Antibody Screen NEGATIVE Imaging Data Radiologist's Impression: Radiology results as stated below per my review and the radiologist's interpretation: NECK CTA HISTORY: Left facial droop. ? cva TECHNIQUE: Multiaxial CT images of the neck were performed following the intravenous administration of contrast to evaluate the major cervical vessels. Maximum intensity projection images were also obtained. All measurements were calculated based on NASCET criteria. A dose lowering technique was utilized adhering to the principles of ALARA. COMPARISON STUDY: None. FINDINGS: The aortic arch and proximal great vessels are widely patent. The bilateral common carotid arteries and right internal carotid artery are widely patent. Mild calcified plaque within the bilateral carotid bulbs. Approximately 30 % narrowing at the takeoff of the left internal carotid artery. However, the remaining left internal carotid artery is widely patent. Mild focal narrowing at the origins of the bilateral vertebral arteries. The remaining vertebral arteries are widely patent. Mucosal thickening and a small fluid level within the right maxillary sinus. IMPRESSION: 1. Mild narrowing of approximately 30% at the takeoff of the left internal carotid artery. Otherwise, the remaining left internal carotid artery, right internal carotid artery, and bilateral common carotid arteries are widely patent. 2. Mild focal narrowing at the origins of the bilateral vertebral arteries. The remaining vertebral arteries are patent. 3. Acute on chronic right maxillary sinusitis. Electronically signed by: Dean Arroyo M.D. 05/03/2019 12:42 PM Dictated: 05/03/19 1235 Transcribed: 05/03/[address] angio head w con CLINICAL HISTORY: 68 years-old Male with ? cva. Acute strokelike symptoms COMPARISON STUDY: CT head and CTA head neck of same day TECHNIQUE: Following the IV administration of 120 cc of Optiray 320, CT angiogram of the brain was performed from the skull base to the vertex. Images are reviewed in the axial, sagittal, and coronal planes. 3-D MIPS images are created and assessed. IV contrast was administered without complication. A dose lowering technique was utilized adhering to the principles of ALARA. CT DOSE: 595.63 mGy.cm FINDINGS: CT ANGIOGRAM OF THE BRAIN: The imaged bilateral internal carotid arteries are patent. Mild calcified plaque about the cavernous and clinoid segments of the bilateral internal carotid arteries and proximal portion of the right M1 segment without high-grade stenosis. The bilateral anterior and middle cerebral arteries are also patent. The vertebrobasilar system and posterior cerebral arteries are widely patent. There is no aneurysm, high-grade stenosis, or proximal branch occlusion identified. Dural sinuses appear patent. Densely noted is moderate polypoid mucosal thickening of the right maxillary sinus. Ex vacuo ventriculomegaly changes with age-related involutional change. Punctate focus of air about the left cavernous sinus. IMPRESSION: Remarkable CTA of the head without aneurysm, dissection, high-grade stenosis or proximal branch occlusion. The above report was generated using voice recognition software. It may contain grammatical, syntax or spelling errors. Electronically signed by: Francisco Ramos M.D. 05/03/2019 12:40 PM Dictated: 05/03/19 1235 Transcribed: 05/03/[address] head/brain wo con CLINICAL HISTORY: 68 years-old Male presenting with Stroke evaluation. TECHNIQUE: Multidetector CT imaging of the head was performed without the use of intravenous contrast. IV contrast: None. One or more dose lowering techniques were used consistent with the principles of ALARA (as low as reasonably achi evable), including automatic exposure control, mA or kV adjustment to individual patient size, and/or use of iterative reconstruction. COMPARISON: None. CT DOSE (mGy.cm): The estimated cumulative dose is 614.27 mGy.cm. FINDINGS: Celery Cutter topogram: Unremarkable. Ventricles and sulci normal in size. No hemorrhage. Brain parenchyma normal in appearance with preserved lara-white differentiation. No acute territorial infarct. No mass effect or midline shift. No extra-axial fluid collection. Paranasal sinuses and mastoid air cells clear. Calvarium intact. IMPRESSION: 1. No acute intracranial abnormality. Electronically signed by: Christopher Hernandez M.D. 05/03/2019 11:23 AM Dictated: 05/03/19 1121 Transcribed: 05/03/19 1121 ECG Data Attestation: I personally reviewed and interpreted this ECG as follows: Indication: other (TIA symptoms) Rate (beats per minute): 70 Rhythm: sinus rhythm Findings: + other (left axis deviation) and + nonspecific-ST abn (in high lateral) Blood Pressure Blood Pressure Findings: Elevated blood pressure Blood Pressure Disposition: further management by hospitalist MILADY Narrative Patient is a 68-year-old male who presents the ER with systolic blood pressures in the 220s. Upon presentation he was taken immediately to CAT scan via triage nurse. I did place the orders. I did not see him until he returned from CAT scan as a stroke alert was called and he was rushed to CAT scan. Upon presentation back to the room on evaluation he had a garbled speech and left- sided facial droop. Was otherwise neurologically intact. Labs show no sig nificant leukocytosis or anemia. INR was unremarkable. BMP along with LFTs bilirubin was unremarkable. Troponin was detectable at 0.272. Lab was obtained and unremarkable. EKG was nondiagnostic. CT was unremarkable. Discussed with neurology from [facility] stroke alert was called. They evaluate the patient and did recommend TPA. Risk and benefits were explained to the patient by myself and the neurologist. Patient understood as well as the . Patient freely consented. He was given 2 doses of labetalol and placed on a Cardene drip and his blood pressures finally did come down. Following this he was given a bolus of TPA and consequently there was a delay secondary to the hypertension with systolic pressures in the 200s. TPA bolus and drip was given. He was placed on a Cardene drip and he was admitted to the ICU and the hospitalist. Impression & Plan CVA (cerebral vascular accident), Hypertensive emergency Critical Care Time I have personally spent 75 minutes of critical care time in the direct management of this patient. This includes bedside care, interpretation of diagnostic studies, and testing, discussion with consultants, patient, and famil y members, and other required patient management activities. This 75 minutes is in excess of all separately billable procedures. Critical Care Time: Yes (75) Total Critical Care Time: 75 Discharge Plan Visit Data *Final* Discharge Date/Time: 05/03/19 12:55 Chief Complaint: TIA Symptoms Stated Complaint: MAYBE STROKE ED Provider: Kendrick Bautista Discharge Problem: CVA (cerebral vascular accident), Hypertensive emergency Patient Disposition: Admitted As Inpatient Discharge Instructions Interventions: ED Discharge Assessment Last Done: 05/03/19 12:55 Discharge Problem: CVA (cerebral vascular accident) Qualifiers: CVA mechanism: unspecified Qualified Code(s): I63.9 - Cerebral infarction, unspecified The scribe's documentation has been prepared under my direction and personally reviewed by me in its entirety. I confirm that the note above accurately reflects all work, treatment, procedures, and medical decision making performed by me.
--- NOTE | 2019-05-03 17:18 | Critical Care Consultation ---
Date of Consultation May 03, 2019 Assessment & Plan (1) CVA (cerebral vascular accident): Reason Critically Ill:68 year old male with CVA currently on TPA NEURO - Patient with ischemic stroke, does not want to get MRI due to claustrophobia CT showing no signs of hemorrhage CTA showing no acute blockage, aneurysm, or dissection Neurology recommending MRI if possible follow up CT after 24 hours on tpa Will optimize HTN, HLD after 48 hours Continuing patient on ASA 81 for life and plavix 75 mg daily for next 21 days CAM ICU: NEGATIVE No altered mental status CARDIAC/VASCULAR - CVA: Facial drooping aphasia, dysarthria, numbness and tingling No focal abnormalities on initial head CT, no sign of bleed CTA showing cerebral vessels all patent and no sign of aneurysm, dissection, or high grade stenosis Symptoms lasting about 3 hours, patient started on tpa Symptoms appear to be improving Will continue to monitor vitals here in the ICU with goal of keeping systolic BP less than 180/105 PRN hydralazine for hypertension Elevated Troponin at .272 downtrending. Echocardiogram with no evidence of septal defect or cardiac dysfunction RESPIRATORY - No respiratory distress oxygenating well on room air GI/NUTRITION - No nausea vomiting abdominal pain or GI bleeding signs Speech therapy evaluated patient patient on soft bite size diet. RENAL/LYTES - No significant electrolyte derangements. - Hoff placed, atraumatic ENDO - No known endocrine disorders Will continue to monitor blood sugars 108 currently. HEME - On tpa for probable ischemic stroke, we will need to monitor carefully for signs of bleeding Hemoglobin and hematocrit currently WNL Will continue to assess ID - No current concern for infection LINES/IV ACCESS - Peripheral venous access only DVT PROPHYLAXIS - TPA (2) Elevated troponin: (3) Acute sinusitis: (4) Hypertensive emergency: Supervising Physician Co-Signing Physician Notes Dr. Mckeon was resident physician during care of patient. I separately evaluated patient for ruggiero portions of the history and the exam. I was present during the critical portion of medical decision making, and I discussed the case with the resident. I generally agree with the findings and plan. Patient required IV antihypertensives to remained within goal after TPA administration. I have personally spent 35 minutes of critical care time in the direct management of this patient. This is a life/limb threatening event. This includes time spent evaluating patient, direct bedside care, chart review, placing orders, interpretation of diagnostic studies, discussion with consu ltants, patient, and/or family members regarding treatment decisions, as well as other required patient management activities. This time is exclusive of all separately billable procedures, and teaching time and separate from and in addition to any other critical care service time. History of Present Illness Reason for Consultation: Cerebrovascular accident on TPA Attending Physician: Garfield Torre MD History of Present Illness Mr. Steven Polanco is a 68 year old man who does not have any routine medical care and reports no major past medical history who presented today with left sided facial numbness, weakness and dysarthria and aphasia that began around 8:30 this morning. He went to work and when he tried to talk no one could understand him. He then presented to [facility] and was found to be profoundly hypertensive in emergency department with blood pressures of 220/[address] showing no acute hemorrhage, troponin of 0.272. Remaining labwork fairly unremarkable. TPA was started at 11:54, and patient transferred to ICU. Currently he feels like he is doing better, he is not having as much difficulty speaking, he is not having dysphagia still acknowledges his voice is slurred. He admits that he had similar symptoms to his presentation 1 month ago that only lasted about 20 minutes that he never followed up on. He has been taking pseudophed for his sinus congestion about six pills a day. No history of falls or recent head injury. Allergies Allergy/AdvReac Type Severity Reaction Status Date / Time No Known Allergies Allergy Mild Unverified 05/03/19 12:17 Home Medications Home Medications Medication Instructions Recorded Confirmed Type amlodipine [Norvasc] 5 mg PO QAM 30 Days #30 tab 05/05/19 Rx aspirin [Ecotrin Low Strength] 81 mg PO QAM 30 Days #30 tab 05/05/19 Rx atorvastatin 40 mg PO QAM 30 Days #30 tab 05/05/19 Rx clopidogrel 75 mg PO QAM 30 Days #30 tab 05/05/19 Rx lisinopril 10 mg PO QAM 30 Days #30 tab 05/05/19 Rx metoprolol succinate 25 mg PO QAM 30 Days #30 tab 05/05/19 Rx Patient History Medical History Elevated troponin CVA (cerebral vascular accident) (Acute) Hypertensive emergency (Acute) Hyperlipidemia (Chronic) Surgical History No pertinent past surgical history (Chronic) Family History Father Stroke, Onset Age: 82 Mother CHF (congestive heart failure) Other Heart disease No pertinent family history Social History Preferred Language: Turkish Communication Ability: Effective Visual Impairment: No Limitations Hearing 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: Normal 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 Beliefs That Will Affect Care: None marital status: marital status details: Current Living Situation: Spouse current occupational status: employed Other Information That Helps Us Care for You: No Feels Safe at Home: Yes Safety Concerns: Feels Safe At This Time Smoking Status: Never smoker Hx Alcohol Use: No Hx Substance Use: No Review of Systems Constitutional: no fever, no chills and no fatigue Eyes: no problem reported Respiratory: no cough, no dyspnea and no wheezing Cardiovascular: no chest pain, no dyspnea, no palpitations and no syncope Gastrointestinal: no abdominal pain, no nausea, no vomiting, no blood in stools and no melena Genitourinary: + problem reported (Not able to urinate currently though has urgency) Neurologic: + numbness; no headache(s) and no confusion Left sided facial drooping, dysarthria, cranial nerve VII impaired on left. No other weakness or abnormalities. Bilateral upper and lower extremity strength equal and intact. Physical Exam Constitutional: well developed, well nourished, cooperative and comfortable Notable facial droop Respiratory: normal respiratory effort, lungs clear to auscultation Cardiovascular: Rate/Rhythm: regular rate and regular rhythm Heart Sounds: no click, no gallop, no murmur and no cardiac rub Gastrointestinal (Abdomen): normal bowel sounds, soft, nontender, no hepatosplenomegaly Skin: no rashes, warm and dry Neurologic: Speech / Cognition: normal cognition Left sided facial drooping, dysarthria, cranial nerve VII impaired on left. No other weakness or abnormalities. Bilateral upper and lower extremity strength equal and intact. Results & Data Vital Signs (Past 12 Hours) Vital Signs Temp Pulse Pulse Resp BP BP Pulse Ox 05/03/19 16:30 84 20 177/102 H 96 05/03/19 16:00 92 H 18 176/92 H 96 05/03/19 15:30 36.8 C 81 18 160/95 H 97 05/03/19 15:15 89 18 147/88 H 95 05/03/19 15:00 96 H 18 181/91 H 95 05/03/19 14:30 89 18 148/81 H 96 05/03/19 14:16 95 H 183/98 H 98 05/03/19 14:10 107 H 18 207/99 H 99 05/03/19 13:55 98 H 18 192/105 H 98 05/03/19 13:40 36.8 C 87 18 186/95 H 95 05/03/19 13:38 36.8 C 90 18 194/113 H 97 05/03/19 13:26 87 16 193/104 H 97 05/03/19 13:25 36.8 C 87 16 193/104 H 97 05/03/19 12:55 36.5 C 83 23 162/89 H 95 05/03/19 12:54 83 21 96 05/03/19 12:53 83 21 96 05/03/19 12:52 83 25 H 97 05/03/19 12:50 80 20 165/86 H 95 05/03/19 12:49 81 22 96 05/03/19 12:48 81 15 98 05/03/19 12:47 79 23 96 05/03/19 12:46 80 19 155/85 H 97 05/03/19 12:45 77 19 96 05/03/19 12:44 73 24 97 05/03/19 12:43 73 16 97 05/03/19 12:42 76 24 97 05/03/19 12:41 72 23 96 05/03/19 12:40 75 18 158/89 H 95 05/03/19 12:39 76 18 97 05/03/19 12:38 75 22 95 05/03/19 12:37 78 21 05/03/19 12:36 73 167/87 H 05/03/19 12:20 175/98 H 96 05/03/19 12:18 68 17 95 05/03/19 12:17 71 16 96 05/03/19 12:16 70 20 96 05/03/19 12:15 78 18 181/113 H 96 05/03/19 12:14 71 28 H 96 05/03/19 12:13 72 24 96 05/03/19 12:12 71 20 190/119 H 96 05/03/19 12:11 68 20 96 05/03/19 12:10 71 18 97 05/03/19 12:09 72 22 96 05/03/19 12:08 71 21 193/105 H 96 05/03/19 12:07 70 25 H 189/106 H 97 05/03/19 12:06 69 18 96 05/03/19 12:04 70 18 194/107 H 95 05/03/19 12:03 72 18 192/114 H 96 05/03/19 12:02 70 26 H 178/124 H 95 05/03/19 12:01 67 24 182/104 H 95 05/03/19 12:00 66 23 94 05/03/19 11:59 68 22 186/105 H 95 05/03/19 11:58 68 22 96 05/03/19 11:57 67 19 96 05/03/19 11:56 69 13 96 05/03/19 11:55 68 18 96 05/03/19 11:54 67 24 94 05/03/19 11:53 65 27 H 95 05/03/19 11:52 64 16 96 05/03/19 11:51 69 18 95 05/03/19 11:50 68 21 168/94 H 96 05/03/19 11:49 67 25 H 95 05/03/19 11:48 69 17 192/104 H 05/03/19 11:47 71 20 188/124 H 05/03/19 11:46 71 23 05/03/19 11:45 72 19 05/03/19 11:44 66 68 23 192/111 H 192/111 H 95 05/03/19 11:43 68 15 05/03/19 11:42 69 26 H 05/03/19 11:41 73 24 05/03/19 11:40 72 24 193/106 H 05/03/19 11:39 85 30 H 195/117 H 05/03/19 11:38 72 26 H 201/119 H 95 05/03/19 11:31 75 22 206/123 H 97 05/03/19 11:30 75 75 24 206/123 H 97 05/03/19 11:25 79 21 97 05/03/19 11:24 75 24 218/109 H 96 05/03/19 11:22 74 77 25 H 220/119 H 220/119 H 95 05/03/19 11:11 77 24 220/119 H 96 06/05/19 11:04 84 18 227/111 H 97 Critical Care Time Critical Care Time: Yes Total Critical Care Time: 35 Resident Activity Tracking Resident Involvement: Resident Care Provided Care Provided: Adult Hospital Medicine (1) CVA (cerebral vascular accident) CVA mechanism: unspecified Qualified Code(s): I63.9 - Cerebral infarction, unspecified
[2019-05-04 05:17] LABS: Hemoglobin 14.3 g/dL (14.0-18.0); Mean Corpuscular Hgb Conc 33.3 g/dL (32-36); Mean Corpuscular Volume 81.1 fL (80-100); Mean Platelet Volume 9.1 fL (7.4-10.4); Platelet Count 414 K/uL (130-400); RDW Coefficient of Variation 13.9 % (11.5-14.5); RDW Standard Deviation 41.4 fL (36.4-46.3); White Blood Count 11.28 K/uL (4.8-10.8)
[2019-05-04 05:43] LABS: BUN Creatinine Ratio 16.6 (10-20); Calcium 9.1 mg/dl (8.5-10.1); Creatinine Clr Calc Pharmacy 82.7 ml/min; Est GFR (African American) 102.1; Est GFR (Non-African American) 88.1; Magnesium 2.1 mg/dl (1.8-2.4); Potassium 3.4 mmol/L (3.5-5.1)
[2019-05-04 05:46] LABS: Phosphorus 3.7 mg/dl (2.5-4.9)
--- NOTE | 2019-05-04 05:47 | Critical Care Progress Note ---
Date of Service May 04, 2019 Assessment & Plan (1) Acute sinusitis: Reason Critically Ill:68 year old male with CVA currently on TPA NEURO - Patient with ischemic stroke, refuses MRI due to claustrophobia -History PTSD due to [place] CT showing no signs of hemorrhage CTA showing no acute blockage, aneurysm, or dissection Neurology recommending MRI if possible follow up CT after 24 hours on tpa Will optimize HTN, HLD after 48 hours Continuing patient on ASA 81 for life and plavix 75 mg daily for next 21 days CAM ICU: NEGATIVE No altered mental status CARDIAC/VASCULAR - CVA: Facial drooping aphasia, dysarthria, numbness and tingling No focal abnormalities on initial head CT, no sign of bleed CTA showing cerebral vessels all patent and no sign of aneurysm, dissection, or high grade stenosis Symptoms lasting about 3 hours, patient started on tpa Symptoms appear to be improving Will continue to monitor vitals here in the ICU with goal of keeping systolic BP less than 180/105 PRN hydralazine for hypertension Elevated Troponin at .272 downtrending. Echocardiogram with no evidence of septal defect or cardiac dysfunction Hypertensive urgency -Starting metoprolol 25 mg, lisinopril 10 mg, amlodipine 5 mg -Recent heavy Sudafed use, discourage or in give alternative: Coricidin RESPIRATORY - No respiratory distress oxygenating well on room air GI/NUTRITION - No nausea vomiting abdominal pain or GI bleeding signs Speech therapy evaluated patient patient on soft bite size diet. RENAL/LYTES - No significant electrolyte derangements. - Hoff placed, atraumatic -Would advocate voiding trials tomorrow ENDO - No known endocrine disorders -Elevated A1c add diabetic education consult HEME - On tpa for probable ischemic stroke, we will need to monitor carefully for signs of bleeding Hemoglobin and hematocrit currently WNL Will continue to assess ID - No current concern for infection LINES/IV ACCESS - Peripheral venous access only DVT PROPHYLAXIS - TPA Dr. Mckeon was resident physician during care of patient. I separately evaluated patient for ruggiero portions of the history and the exam. I was present during the critical portion of medical decision making, and I discussed the case with the resident. I generally agree with the findings and plan. Patient was discussed in multidisciplinary rounds Start antiplatelet medication after repeat neuroimaging If repeat neuroimaging shows no signs of hemorrhagic transformation patient would be stable for transfer out of ICU to telemetry (2) DVT prophylaxis: (3) Elevated troponin: (4) CVA (cerebral vascular accident): (5) Hypertensive emergency: (6) Hyperlipidemia: Supervising Physician Co-Signing Physician Notes (1) CVA (cerebral vascular accident): Reason Critically Ill:68 year old male with CVA currently on TPA NEURO - Patient with ischemic stroke, refuses MRI due to claustrophobia -History PTSD due to [place] CT showing no signs of hemorrhage CTA showing no acute blockage, aneurysm, or dissection Neurology recommending MRI if possible follow up CT after 24 hours on tpa Will optimize HTN, HLD after 48 hours Continuing patient on ASA 81 for life and plavix 75 mg daily for next 21 days CAM ICU: NEGATIVE No altered mental status CARDIAC/VASCULAR - CVA: Facial drooping aphasia, dysarthria, numbness and tingling No focal abnormalities on initial head CT, no sign of bleed CTA showing cerebral vessels all patent and no sign of aneurysm, dissection, or high grade stenosis Symptoms lasting about 3 hours, patient started on tpa Symptoms appear to be improving Will continue to monitor vitals here in the ICU with goal of keeping systolic BP less than 180/105 PRN hydralazine for hypertension Elevated Troponin at .272 downtrending. Echocardiogram with no evidence of septal defect or cardiac dysfunction Hypertensive urgency -Starting metoprolol 25 mg, lisinopril 10 mg, amlodipine 5 mg -Recent heavy Sudafed use, discourage or in give alternative: Coricidin RESPIRATORY - No respiratory distress oxygenating well on room air GI/NUTRITION - No nausea vomiting abdominal pain or GI bleeding signs Speech therapy evaluated patient patient on soft bite size diet. RENAL/LYTES - No significant electrolyte derangements. - Hoff placed, atraumatic -Would advocate voiding trials tomorrow ENDO - No known endocrine disorders -Elevated A1c add diabetic education consult HEME - On tpa for probable ischemic stroke, we will need to monitor carefully for signs of bleeding Hemoglobin and hematocrit currently WNL Will continue to assess ID - No current concern for infection LINES/IV ACCESS - Peripheral venous access only DVT PROPHYLAXIS - TPA (2) Elevated troponin: (3) Acute sinusitis: (4) Hypertensive emergency: Dr. Mckeon was resident physician during care of patient. I separately evaluated patient for ruggiero portions of the history and the exam. I was present during the critical portion of medical decision making, and I discussed the case with the resident. I generally agree with the findings and plan. Patient was discussed in multidisciplinary rounds Start antiplatelet medication after repeat neuroimaging If repeat neuroimaging shows no signs of hemorrhagic transformation patient would be stable for transfer out of ICU to telemetry Subjective Mr Polanco doing pretty well this morning. No worsening of symptoms and he feels there has been some improvement. Patient refusing to go through with an MRI of the brain due to PTSD from his time in [place]. Review of Systems Constitutional: no fever and no chills Respiratory: no cough and no dyspnea Cardiovascular: no chest pain, no dyspnea and no palpitations Gastrointestinal: no nausea and no vomiting Neurologic: + paralysis; no falls and no numbness Physical Exam Constitutional: well developed, well nourished, cooperative and comfortable Ill appearing with left sided facial droop still present. Respiratory: normal respiratory effort, lungs clear to auscultation Cardiovascular: Rate/Rhythm: regular rate and regular rhythm Heart Sounds: no click, no gallop, no murmur and no cardiac rub Gastrointestinal (Abdomen): normal bowel sounds, soft, nontender, no hepato splenomegaly Skin: no rashes, warm and dry Neurologic: Speech / Cognition: normal cognition Results & Data Vital Signs (Past 12 Hours) Vital Signs Temp Pulse Pulse Resp BP BP Pulse Ox 05/04/19 05:00 82 180/106 H 94 05/04/19 04:00 36.8 C 80 20 167/97 H 95 05/04/19 03:00 73 20 167/103 H 96 05/04/19 02:00 78 18 158/100 H 94 05/04/19 01:00 79 20 160/104 H 93 05/04/19 00:00 36.9 C 83 20 162/94 H 94 05/03/19 23:01 84 18 159/84 H 94 05/03/19 22:30 89 18 167/104 H 95 05/03/19 22:00 83 18 157/85 H 95 05/03/19 21:00 84 20 175/100 H 95 05/03/19 20:30 98 H 18 191/99 H 95 05/03/19 20:02 91 H 18 154/93 H 97 05/03/19 20:00 84 18 145/111 H 96 05/03/19 19:30 82 18 166/107 H 97 05/03/19 19:00 36.6 C 88 18 172/109 H 99 05/03/19 18:30 94 H 18 178/103 H 98 05/03/19 18:00 84 18 177/100 H 95 (1) CVA (cerebral vascular accident) CVA mechanism: unspecified Qualified Code(s): I63.9 - Cerebral infarction, unspecified
[2019-05-04 06:00] LABS: Estimated Average Glucose 151 mg/dl; Hemoglobin A1C 6.9 % (4.5-5.6)
[2019-05-04] MEDS ORDERED: AMLODIPINE BESYLATE 5 MG TAB PO SCH (09:00)
[2019-05-04] MEDS ORDERED: POTASSIUM CHLORIDE 10 MEQ TABCR PO ONE (10:00)
[2019-05-04] MEDS: METOPROLOL SUCC 25MG EXT REL TAB PO SCH (10:03)
[2019-05-04] MEDS: LISINOPRIL 10 MG TAB PO SCH (10:03)
[2019-05-04] MEDS: ATORVASTATIN 40 MG TAB PO SCH (10:20)
--- NOTE | 2019-05-04 13:06 | CT Scan Report ---
HEAD CT NONCONTRAST CT DOSE: 614.27 mGy.cm HISTORY: Recent stroke. Status post tPA. TECHNIQUE: Multiaxial CT images of the head were performed without the use of intravenous contrast. A utomated exposure control was utilized for this study. A dose lowering technique was utilized adheri ng to the principles of ALARA. Comparison: None. Findings: The paranasal sinuses and mastoid air cells are clear. The calvarium and skull base are int act. There is no mass, hematoma, or midline shift. White matter hypodensity is nonspecific but sugges tive of microvascular ischemic change. The ventricles and sulci demonstrate mild age-related involuti onal changes. Best seen on images 21 and 22 there is a small focal area of hypodensity within the rig ht precentral gyrus resulting in loss of the normal lara-white junction. This measures approximately 2.3 cm in size is consistent with an acute to subacute right MCA territory infarct. Impression: 1. Small focal right MCA territory infarct as described above. 2. No intracranial hemorrhage. Electronically signed by: Dean Arroyo M.D. 05/04/2019 1:05 PM
[2019-05-04] MEDS: CLOPIDOGREL BISULFATE 75 MG TAB PO SCH (13:33)
[2019-05-04] MEDS: ASPIRIN 81 MG ECTAB PO SCH (13:33)
--- NOTE | 2019-05-04 13:40 | Neurology Progress Note ---
Date of Service May 04, 2019 Assessment & Plan (1) CVA (cerebral vascular accident): 1. CTA head and neck- no significant stenosis 2. TTE- 60-65% no ASD 3. MRI brain - evaluation area of stroke- unable due to claustrophobia- combat related 4. tPa protocol - hold aspirin start for 24 hours/ repeat CT head 24 hours after tPa given 5. after 48 hours optimize DM/HTN/HLD/ LDL <70 6. PT/OT speech for discharge needs 7. patient was not on aspirin prior to event- aspirin 81 mg and plavix 75 mg d aily x 21 days then aspirin for a lifetime 8. will need cardiac monitoring as outpatient unless irregular rhythm is capture in patient 9. need to establish care with PCP follow up in 4-6 weeks with neurology Prabha Jarvis PAC, schedule Supervising Physician Co-Signing Physician Notes I have seen and discussed above patient with Dr Alexi Rodriguez, neurology I seen Mr. Finch today, examined him, reviewed his CT scan report and discussed his case with Prabha Jarvis PA-C His exam reveals a persistent mild dysarthria and left upper motor neuron facial paresis and no significant involvement of the left arm or left leg and no sensory loss CT scan confirms the presence of a presumptive embolic infarction involving the right frontal area which is anatomically correct At this point we are going to recommend initiating dual antiplatelet anticoagulation with aspirin and Plavix to be discharged probably tomorrow assuming he is stable to be seen in our office in about 4 to 6 weeks and to have an outpatient ZIO patch performed to search for paroxysmal atrial fibrillation 1 of the more likely causes of this isolated event Were to hold off on MRI due to his 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 He was in his normal state of health when he woke this am. He went to work and started having difficulty speaking. He was on no chronic medications. He drove home and his brought him to the ED. A CT head and CTA head neck was ordered and there was not hemorrhage on scan. He arrived around 11a and [facility] [place] and he was administered tPa. He states the slurred speech has gotten better. he states family history of heart disease and stroke father in 80's. brother with heart disease on coumadin. Today he is up in the bedside chair states he feels he is doing better. He is working with speech therapy. He did bite his tongue last night and had diffic ulty with swallowing a potassium tablet. He denies any one sided weakness, numbness tingling, vision changes, N, V, headache. He was having some urinary retention but now the catheter has been removed. 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, hip flex 5/5 bilaterally Results & Data Vital Signs (Past 12 Hours) Vital Signs Temp Pulse Pulse Resp BP BP Pulse Ox 05/04/19 11:46 95 H 152/94 H 95 05/04/19 11:30 88 117/83 95 05/04/19 11:15 84 127/86 97 05/04/19 11:00 87 151/89 H 96 05/04/19 10:45 88 151/93 H 95 05/04/19 10:31 99 H 160/100 H 96 05/04/19 10:30 107 H 94 05/04/19 10:15 104 H 152/104 H 97 05/04/19 10:09 103 H 150/97 H 97 05/04/19 10:00 94 H 153/95 H 96 05/04/19 09:45 95 H 157/98 H 96 05/04/19 09:30 94 H 155/92 H 92 05/04/19 09:19 109 H 153/107 H 05/04/19 09:15 105 H 153/107 H 94 05/04/19 09:14 105 H 154/99 H 94 05/04/19 09:07 208/112 H 05/04/19 08:50 36.8 C 85 18 176/89 H 94 05/04/19 08:00 84 18 188/113 H 94 05/04/19 07:00 78 18 184/110 H 96 05/04/19 06:07 72 20 170/94 H 96 05/04/19 06:00 77 22 183/106 H 94 05/04/19 05:00 82 180/106 H 94 05/04/19 04:00 36.8 C 80 20 167/97 H 95 05/04/19 03:00 73 20 167/103 H 96 05/04/19 02:00 78 18 158/100 H 94 Laboratory Results Abnormal lab results 05/03/19 05/04/19 05/04/19 Range/Units 17:00 04:43 04:43 WBC (4.8-10.8) K/uL Plt Count (130-400) K/uL Potassium 3.4 L (3.5-5.1) mmol/L Glucose 117 H (70-99) mg/dl Hemoglobin A1c 6.9 H (4.5-5.6) % Troponin I 0.244 H* (0-0.045) ng/ml 05/04/19 Range/Units 04:43 WBC 11.28 H (4.8-10.8) K/uL Plt Count 414 H (130-400) K/uL Potassium (3.5-5.1) mmol/L Glucose (70-99) mg/dl Hemoglobin A1c (4.5-5.6) % Troponin I (0-0.045) ng/ml Diagnostic Findings CT head- . Small focal right MCA territory infarct as described above. No intracranial hemorrhage. (1) CVA (cerebral vascular accident) CVA mechanism: unspecified Qualified Code(s): I63.9 - Cerebral infarction, unspecified
--- NOTE | 2019-05-04 18:21 | Hospitalist Progress Note ---
Date of Service May 04, 2019 Assessment & Plan (1) CVA (cerebral vascular accident): Present on admission with left facial numbness, left facial droop and aphasia Stroke alert called Initial CT head showed no intracranial abnormality TPA was administered Repeat CT head done today showed acute to subacute right MCA territory infarct. CTA neck showed Mild narrowing of approximately 30% at the takeoff of the left internal carotid artery. Mild focal narrowing at the origins of the bilateral vertebral arteries CTA head showed remarkable CTA of the head without aneurysm, dissection, high- grade stenosis or proximal branch occlusion. Unable to get MRI due to severe claustrophobic relating it back to when he was in [place] Neurology on board recommended aspirin 81 mg and plavix 75 mg daily x 21 days then aspirin for a lifetime Continue statin Will need outpatient ZIOpatch once discharge Continue PT/OT and speech therapy Continue monitor (2) Hypertensive emergency: BP on admission was 227/111 Received IV labetalol in the ER Was placed on IV Cardene drip in the ICU BP improved now Will continue amlodipine and lisinopril, goal of keeping systolic BP less than 180 for now to allow permissive HTN Continue monitor BP (3) Elevated troponin: likely in setting of HTN emergency Pt without cardiac complaints EKG showed no ischemic changes Trop trending down ECHO showed no wall motion abnormality with EF 50-55 % (4) Acute sinusitis: CT neck reveals acute on chronic maxillary sinusitis Symptoms improves Continue supportive therapy with nasal saline (5) DVT prophylaxis: On Lovenox subq Disposition: Will transfer to telemetrty Subjective Pt was seen and examined Lying in bed with no distress with family member at bedside as per family his speech is much better because they are able to understand him now Pt said that he feels ok Denies any chest pain, palpitation, dizziness and SOB Physical Exam Physical Exam: General- No acute distress Head- atraumatic Eyes- PERRL, EOMI, ENT- oropharynx clear Neck- supple, no JVD Lungs- clear to auscultation Heart- regular rhythm; no murmur Abdomen- normal bowel sounds, soft, nontender Extremities- no calf tenderness Neuro- alert, oriented x 3; PERRL, EOMI; no facial palsy; +mild dysarthria, normal strength and sensation Skin- warm & dry Results & Data Vital Signs (Past 12 Hours) Vital Signs Temp Pulse Pulse Resp BP BP Pulse Ox 05/04/19 18:01 86 143/99 H 92 05/04/19 17:31 85 142/76 H 94 05/04/19 17:00 86 142/70 H 96 05/04/19 16:31 84 132/112 H 94 05/04/19 16:28 79 115/84 96 05/04/19 16:02 80 95 05/04/19 16:01 37 C 78 135/77 94 05/04/19 16:00 79 05/04/19 15:30 76 139/84 94 05/04/19 15:20 94 05/04/19 15:19 76 134/79 94 05/04/19 15:00 70 130/78 93 05/04/19 13:30 84 149/88 H 94 05/04/19 13:20 85 145/90 H 94 05/04/19 13:13 88 183/113 H 97 05/04/19 13:00 81 05/04/19 12:30 83 110/70 94 05/04/19 12:00 88 117/73 95 05/04/19 11:59 87 118/74 05/04/19 11:46 95 H 152/94 H 95 05/04/19 11:30 88 117/83 95 05/04/19 11:15 84 127/86 97 05/04/19 11:00 87 151/89 H 96 05/04/19 10:45 88 151/93 H 95 05/04/19 10:31 99 H 160/100 H 96 05/04/19 10:30 107 H 94 05/04/19 10:15 104 H 152/104 H 97 05/04/19 10:09 103 H 150/97 H 97 05/04/19 10:00 94 H 153/95 H 96 05/04/19 09:45 95 H 157/98 H 96 05/04/19 09:30 94 H 155/92 H 92 05/04/19 09:19 109 H 153/107 H 05/04/19 09:15 105 H 153/107 H 94 05/04/19 09:14 105 H 154/99 H 94 05/04/19 09:07 208/112 H 05/04/19 08:50 36.8 C 85 18 176/89 H 94 05/04/19 08:00 84 18 188/113 H 94 06/06/19 07:00 78 18 184/110 H 96 (1) CVA (cerebral vascular accident) CVA mechanism: unspecified Qualified Code(s): I63.9 - Cerebral infarction, unspecified
[2019-05-04] MEDS ORDERED: GUAIFENESIN/DEXTROM SYRUP 200MG/20MG 10ML UDC PO PRN (20:27)
[2019-05-05] MEDS ORDERED: ACETAMINOPHEN 325 MG TAB PO PRN (00:29)
[2019-05-05] MEDS: TRAMADOL HCL 50 MG TABLET PO PRN ×2 (04:46→12:34)
[2019-05-05] MEDS ORDERED: ENOXAPARIN INJ 40 MG/0.4 ML SYR SQ SCH (06:00)
[2019-05-05 06:21] LABS: Hematocrit (blood only) 41.2 % (42-52); Hemoglobin 13.9 g/dL (14.0-18.0); Mean Corpuscular Hgb Conc 33.7 g/dL (32-36); Mean Corpuscular Volume 81.7 fL (80-100); Mean Platelet Volume 8.9 fL (7.4-10.4); Platelet Count 384 K/uL (130-400); RDW Coefficient of Variation 14.1 % (11.5-14.5); RDW Standard Deviation 42.1 fL (36.4-46.3); Red Blood Count 5.04 M/uL (4.7-6.1); White Blood Count 18.52 K/uL (4.8-10.8)
[2019-05-05 06:26] LABS: BUN Creatinine Ratio 26.9 (10-20); Calcium 9.2 mg/dl (8.5-10.1); Creatinine Clr Calc Pharmacy 74.2 ml/min; Est GFR (African American) 91.9; Est GFR (Non-African American) 79.3; Potassium 3.8 mmol/L (3.5-5.1)
[2019-05-05] MEDS: ATORVASTATIN 40 MG TAB PO SCH (08:05)
[2019-05-05] MEDS: LISINOPRIL 10 MG TAB PO SCH (08:05)
[2019-05-05] MEDS: ASPIRIN 81 MG ECTAB PO SCH (08:05)
[2019-05-05] MEDS: CLOPIDOGREL BISULFATE 75 MG TAB PO SCH (08:05)
[2019-05-05] MEDS: METOPROLOL SUCC 25MG EXT REL TAB PO SCH (08:06)
--- NOTE | 2019-05-05 14:57 | Hospitalist Progress Note ---
Date of Service May 05, 2019 Assessment & Plan (1) CVA (cerebral vascular accident): Present on admission with left facial numbness, left facial droop and aphasia Stroke alert called Initial CT head showed no intracranial abnormality TPA was administered Repeat CT head done today showed acute to subacute right MCA territory infarct. CTA neck showed Mild narrowing of approximately 30% at the takeoff of the left internal carotid artery. Mild focal narrowing at the origins of the bilateral vertebral arteries CTA head showed remarkable CTA of the head without aneurysm, dissection, high- grade stenosis or proximal branch occlusion. Unable to get MRI due to severe claustrophobic relating it back to when he was in [place] Neurology on board recommended aspirin 81 mg and plavix 75 mg daily x 21 days then aspirin for a lifetime Continue statin Case discussed with neurology and ok from neurology standpoint to discharge home Continue outpatient speech therapy Will need outpatient ZIOpatch once discharge Follow up with neurology in 3 to 4 weeks Continue monitor (2) Hypertensive emergency: Hypertension BP on admission was 227/111 Received IV labetalol in the ER Was placed on IV Cardene drip in the ICU BP improved Continue amlodipine, lisinopril and metoprolol, goal of keeping systolic BP less than 180 for now to allow permissive HTN Continue monitor BP closely advised pt to monitor BP and bring BP log at his next appointment with his PCP (3) Elevated troponin: likely in setting of HTN emergency Pt without cardiac complaints EKG showed no ischemic changes Trop trending down ECHO showed no wall motion abnormality with EF 50-55 % (4) Acute sinusitis: CT neck reveals acute on chronic maxillary sinusitis Symptoms improves Continue supportive therapy with nasal saline (5) Diabetes mellitus: Hba1c 6.9 (05/05/19) Discussed about lifestyle modification Advised pt to follow a heathy diet Check Hba1c in 3 to 6 months Elevated WBC Possible reactive Afebrile Check CBC in 1 week (6) DVT prophylaxis: On Lovenox subq Disposition: Discharge home today Follow up with your PCP Dr. Salmeron on 05/12 @ 12:15 PM Follow up with Neurology in 4 to 6 weeks Follow up with speech therapy Subjective Pt was seen and examined Sitting in chair with and daughter at bedside Pt said that he feels fine He walked in the hallway with therapy today During the encounter and daughter got to an argument over the patient Speech slightly improves Denies any chest pain, palpitation, dizziness and SOB Physical Exam Physical Exam: General- No acute distress Head- atraumatic Eyes- PERRL, EOMI, ENT- oropharynx clear Neck- supple, no JVD Lungs- clear to auscultation Heart- regular rhythm; no murmur Abdomen- normal bowel sounds, soft, nontender Extremities- no calf tenderness Neuro- alert, oriented x 3; PERRL, EOMI; no facial palsy; +mild dysarthria, normal strength and sensation Skin- warm & dry Results & Data Vital Signs (Past 12 Hours) Vital Signs Temp Pulse Pulse Resp BP BP Pulse Ox 05/05/19 11:20 36.5 C 75 18 158/80 H 94 05/05/19 08:00 79 05/05/19 07:02 36.7 C 75 18 162/84 H 95 05/05/19 03:56 36.8 C 75 20 163/89 H 95 (1) CVA (cerebral vascular accident) CVA mechanism: unspecified Qualified Code(s): I63.9 - Cerebral infarction, unspecified
[2019-05-05] MEDS ORDERED: STROKE PATIENT DISCHARGE STA (15:10)
--- NOTE | 2019-05-05 15:34 | Pharmacy Report ---
Pharmacist Stroke Counseling - Date of Service May 05, 2019 - Scope: Pharmacy has been consulted to provide medication discharge counseling for this patient admitted with CVA as per the Pharmacist Discharge Counseling for Stroke Patients Protocol. - Medications on Discharge: New Rx's Medication Instructions Recorded amlodipine [Norvasc] 5 mg PO QAM 30 Days #30 tab 05/05/19 aspirin [Ecotrin Low Strength] 81 mg PO QAM 30 Days #30 tab 05/05/19 atorvastatin 40 mg PO QAM 30 Days #30 tab 05/05/19 clopidogrel 75 mg PO QAM 30 Days #30 tab 05/05/19 lisinopril 10 mg PO QAM 30 Days #30 tab 05/05/19 metoprolol succinate 25 mg PO QAM 30 Days #30 tab 05/05/19 - Action: The above medications, specifically ones for stroke treatment/prophylaxis, have been reviewed in detail with the patient and/or patient claims customer service representative(s) prior to discharge. This includes indication, common adverse reactions, drug interactions, and medication administration. Medication counseling has been employed using the teach-back method to ensure understanding. - Outcome: The patient and/or patient claims customer service representative(s) have demonstrated understanding of the medications. Please note, they are aware that the pharmacist will call them within 72 hours post-discharge to confirm that the appropriate medications are being taken and answer any further medication related questions the patient might have at that time. Contact information Individual to be contacted: Steven Relationship to patient (if applicable): n/a Phone number: Best time to call: [phone] Additional comments: educated pt on DAPT for 21 days then ASA 81 monotx for life. D/w pt to avoid NSAIDS and take APAP for pxn. Also discussed new antihypertensives. Thank you for allowing pharmacy to be involved in the care of this patient. Please call [phone] or [phone] with any additional questions
--- NOTE | 2019-05-06 08:42 | Discharge Summary ---
Date of Service May 05, 2019 Admission HPI Per Admitting Provider This is a 68-year-old male who has not seen a physician for over 5 years who presents to [facility] secondary to left facial numbness, left facial droop, and aphasia that began at 830am. He denies any significant past medical history. At approximately 830am patient noticed some left facial numbness. He opted to present to work and developed significant postnasal drip and he was unable to clear it. Tongue also felt numb. Given symptoms he opted to drive himself home. This is when he noticed a left facial droop and noted garbled speech. He did not have any upper or lower extremity weakness or loss of bowel or bladder. He has otherwise been healthy except he does elicit for the past 10 days he has been having sinus congestion which has improved. He has been taking [id number], Sudafed, for symptom relief. He states approximately 1 month ago he had similar symptoms of left facial numbness that lasted 20 minutes but then resolved. "I didn't think anything of it." He stat es he took approximately 6 pills a day. He denies smoking, alcohol or illicit drug use. 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 Given the abrupt symptom onset stroke alert was initiated. He was noted to be significantly hypertensive SBP greater than 220. He received 2 doses of IV labetalol 10 mg and BP decreased to 168. TPA was recommended and was administered at approximately 11:54 AM. Admission Exam Per Admitting Provider Gen: WD/WN, M, NAD, sitting up in bed, pleasant but tearful, conversing easily, notable L facial droop which improved during exam but not resolved Head: Normocephalic, Atraumatic Eyes: Sclera normal, no conjunctival injection, PERRLA, EOMI ENT: Gross hearing intact, normal pharynx, mucous membranes moist Neck: supple, no adenopathy, No JVD, no bruit, Resp: Clear to auscultation b/l, no wheeze, rales, rhonchi. Normal insp/exp effort, no accessory muscle use CV: Regular rate, regular rhythm, no murmur, rub, gallop, or ectopy Abd: +BS x 4, soft, nontender, nondistended Musculoskeletal: moves extremities active rom x 4, strength intact, good licensed midwife strength Extremities: No edema bilaterally Skin: warm, moist, no rash, negative turgor, cap refill < 2sec Neuro: Alert and oriented x 3, speech normal, L facial droop, good mood/affect, cran nerve 2-12 intact grossly : deferred Principal Diagnosis CVA (cerebral vascular accident): Hypertensive urgency Hypertension Elevated troponin Diabetes type 2 Leukocytosis Discharge Exam General- No acute distress Head- atraumatic Eyes- PERRL, EOMI, ENT- oropharynx clear Neck- supple, no JVD Lungs- clear to auscultation Heart- regular rhythm; no murmur Abdomen- normal bowel sounds, soft, nontender Extremities- no calf tenderness Neuro- alert, oriented x 3; PERRL, EOMI; no facial palsy; +mild dysarthria, normal strength and sensation Skin- warm & dry Discharge Data Allergies Allergy/AdvReac Type Severity Reaction Status Date / Time No Known Allergies Allergy Mild Unverified 05/03/19 12:17 Consultations 05/03/19 12:00 ED Decision to Admit Stat 05/03/19 12:20 Consult Drug Purchaser Routine 05/03/19 12:43 Consult Neurology Routine 05/03/19 13:24 Consult Case Management - Discharge Planning Routine Ordered Studies 05/03/19 11:10 CT head/brain wo con Stat 05/03/19 11:22 CT angio head w con Stat CT angio neck with con Stat 05/04/19 08:48 CT head/brain wo con Urgent CT head/brain wo con CLINICAL HISTORY: 68 years-old Male presenting with Stroke evaluation. TECHNIQUE: Multidetector CT imaging of the head was performed without the use of intravenous contrast. IV contrast: None. One or more dose lowering techniques were used consistent with the principles of ALARA (as low as reasonably achievable), including automatic exposure control, mA or kV adjustment to individual patient size, and/or use of iterative reconstruction. COMPARISON: None. CT DOSE (mGy.cm): The estimated cumulative dose is 614.27 mGy.cm. FINDINGS: [employer] topogram: Unremarkable. Ventricles and sulci normal in size. No hemorrhage. Brain parenchyma normal in appearance with preserved lara-white differentiation. No acute territorial infarct. No mass effect or midline shift. No extra-axial fluid collection. Paranasal sinuses and mastoid air cells clear. Calvarium intact. IMPRESSION: 1. No acute intracranial abnormality. Electronically signed by: Christopher Hernandez M.D. 05/03/2019 11:23 AM Dictated: 05/03/19 1121 Transcribed: 05/03/[address] angio head w con CLINICAL HISTORY: 68 years-old Male with ? cva. Acute strokelike symptoms COMPARISON STUDY: CT head and CTA head neck of same day TECHNIQUE: Following the IV administration of 120 cc of Optiray 320, CT angiogram of the brain was performed from the skull base to the vertex. Images are reviewed in the axial, sagittal, and coronal planes. 3-D MIPS images are created and assessed. IV contrast was administered without complication. A dose lowering technique was utilized adhering to the principles of ALARA. CT DOSE: 595.63 mGy.cm FINDINGS: CT ANGIOGRAM OF THE BRAIN: The imaged bilateral internal carotid arteries are patent. Mild calcified plaque about the cavernous and clinoid segments of the bilateral internal carotid arteries and proximal portion of the right M1 segment without high-grade stenosis. The bilateral anterior and middle cerebral arteries are also patent. The vertebrobasilar system and posterior cerebral arteries are widely patent. There is no aneurysm, high-grade stenosis, or proximal branch occlusion identified. Dural sinuses appear patent. Densely noted is moderate polypoid mucosal thickening of the right maxillary sinus. Ex vacuo ventriculomegaly changes with age-related involutional change. Punctate focus of air about the left cavernous sinus. IMPRESSION: Remarkable CTA of the head without aneurysm, dissection, high-grade stenosis or proximal branch occlusion. The above report was generated using voice recognition software. It may contain grammatical, syntax or spelling errors. Electronically signed by: Francisco Ramos M.D. 05/03/2019 12:40 PM Dictated: 05/03/19 1235 Transcribed: 05/03/19 1235 NECK CTA HISTORY: Left facial droop. ? cva TECHNIQUE: Multiaxial CT images of the neck were performed following the intravenous administration of contrast to evaluate the major cervical vessels. Maximum intensity projection images were also obtained. All measurements were calculated based on NASCET criteria. A dose lowering technique was utilized adhering to the principles of ALARA. COMPARISON STUDY: None. FINDINGS: The aortic arch and proximal great vessels are widely patent. The bilateral common carotid arteries and right internal carotid artery are widely patent. Mild calcified plaque within the bilateral carotid bulbs. Approximately 30 % narrowing at the takeoff of the left internal carotid artery. However, the remaining left internal carotid artery is widely patent. Mild focal narrowing at the origins of the bilateral vertebral arteries. The remaining vertebral arteries are widely patent. Mucosal thickening and a small fluid level within the right maxillary sinus. IMPRESSION: 1. Mild narrowing of approximately 30% at the takeoff of the left internal carotid artery. Otherwise, the remaining left internal carotid artery, right internal carotid artery, and bilateral common carotid arteries are widely patent. 2. Mild focal narrowing at the origins of the bilateral vertebral arteries. The remaining vertebral arteries are patent. 3. Acute on chronic right maxillary sinusitis. Electronically signed by: Dean Arroyo M.D. 05/03/2019 12:[address]AST CT DOSE: 614.27 mGy.cm HISTORY: Recent stroke. Status post tPA. TECHNIQUE: Multiaxial CT images of the head were performed without the use of intravenous contrast. Automated exposure control was utilized for this study. A dose lowering technique was utilized adhering to the principles of ALARA. Comparison: None. Findings: The paranasal sinuses and mastoid air cells are clear. The calvarium and skull base are intact. There is no mass, hematoma, or midline shift. White matter hypodensity is nonspecific but suggestive of microvascular ischemic change. The ventricles and sulci demonstrate mild age-related involutional changes. Best seen on images 21 and 22 there is a small focal area of hypodensity within the right precentral gyrus resulting in loss of the normal lara-white junction. This measures approximately 2.3 cm in size is consistent with an acute to subacute right MCA territory infarct. Impression: 1. Small focal right MCA territory infarct as described above. 2. No intracranial hemorrhage. Electronically signed by: Dean Arroyo M.D. 05/04/2019 1:05 PM Dictated: 05/04/19 1259 Transcribed: 05/04/19 1259 Hospital Course (1) CVA (cerebral vascular accident): Present on admission with left facial numbness, left facial droop and aphasia Stroke alert called Initial CT head showed no intracranial abnormality TPA was administered Repeat CT head done today showed acute to subacute right MCA territory infarct. CTA neck showed Mild narrowing of approximately 30% at the takeoff of the left internal carotid artery. Mild focal narrowing at the origins of the bilateral vertebral arteries CTA head showed remarkable CTA of the head without aneurysm, dissection, high- grade stenosis or proximal branch occlusion. Unable to get MRI due to severe claustrophobic relating it back to when he was in [place] Neurology on board recommended aspirin 81 mg and plavix 75 mg daily x 21 days then aspirin for a lifetime Continue statin Case discussed with neurology and ok from neurology standpoint to discharge home Continue outpatient speech therapy Will need outpatient ZIOpatch once discharge Follow up with neurology in 3 to 4 weeks Continue monitor (2) Hypertensive emergency: Hypertension BP on admission was 227/111 Received IV labetalol in the ER Was placed on IV Cardene drip in the ICU BP improved Continue amlodipine, lisinopril and metoprolol, goal of keeping systolic BP less than 180 for now to allow permissive HTN Continue monitor BP closely advised pt to monitor BP and bring BP log at his next appointment with his PCP (3) Elevated troponin: likely in setting of HTN emergency Pt without cardiac complaints EKG showed no ischemic changes Trop trending down ECHO showed no wall motion abnormality with EF 50-55 % (4) Acute sinusitis: CT neck reveals acute on chronic maxillary sinusitis Symptoms improves Continue supportive therapy with nasal saline (5) Diabetes mellitus: Hba1c 6.9 (05/05/19) Discussed about lifestyle modification Advised pt to follow a heathy diet Check Hba1c in 3 to 6 months Elevated WBC Possible reactive Afebrile Check CBC in 1 week (6) DVT prophylaxis: On Lovenox subq Disposition: Discharge home today Follow up with your PCP Dr. Salmeron on 05/12 @ 12:15 PM Follow up with Neurology in 4 to 6 weeks Follow up with speech therapy Total Time Total Time Spent Total Time Spent (In Minutes): 35 minutes Total Time Includes: Examination of the Patient, Discharge Planning, Medication Reconciliation, Communication With Other Providers and Other Discharge Plan Discharge Items Patient Disposition: Home - Self-Care Reason For Visit: CVA Discharge Diagnosis: CVA (cerebral vascular accident): Hypertensive urgency Hypertension Elevated troponin Diabetes type 2 Leukocytosis Discharge Goals: Decrease discomfort, Improve disease control, Increase independence and Improve nutritional status Activity: Resume your previous activity Activity Comment: As tolerated Non-emergency contact: Primary Care Provider and Neurologist Call non-emergency contact if: you have any medication questions and your temperature is above 101 Follow-up/Referrals: Tamir Salmeron MD [Primary Care Provider] - Diet: Carb Consistent or DM2 and Low Sodium (2gm) Diet Comment: Soft size diet Addtl Provider Instructions: Follow up with your primary care provider Dr. Salmeron on 05/12 @ 12:15 PM Follow up with Neurology in 4 to 6 weeks (Neurology office will call you for the appointment) Follow up with speech therapy (Follow a soft size diet and advanced as tolerated) Follow up a heathy diet and limited concentrated sweet intake Follow a low salt diet Monitor your blood pressure and bring blood pressure log at your next appointment with your physician Monitor for any abnormal bleeding such as blood in your stools and urine since you are on aspirin and plavix Check liver enzymes in 2 weeks after taking the atorvastatin Check CBC in 1 week to monitor leukocytosis Prescriptions: New atorvastatin 40 mg Tablet 40 mg PO QAM 30 Days Qty: 30 RF: 0 clopidogrel 75 mg Tablet 75 mg PO QAM 30 Days Qty: 30 RF: 0 amlodipine [Norvasc] 5 mg Tablet 5 mg PO QAM 30 Days Qty: 30 RF: 0 aspirin [Ecotrin Low Strength] 81 mg Tablet,Delayed Release (Dr/Ec) 81 mg PO QAM 30 Days Qty: 30 RF: 0 lisinopril 10 mg Tablet 10 mg PO QAM 30 Days Qty: 30 RF: 0 metoprolol succinate 25 mg Tablet Extended Release 24 Hr 25 mg PO QAM 30 Days Qty: 30 RF: 0 Discontinued ibuprofen 200 mg Tablet 200 mg PO QID PRN (Reason: Pain) RF: 0 pseudoephedrine HCl [Sudafed] 30 mg Tablet 30 mg PO Q6H PRN (Reason: Congestion) RF: 0 Stand-Alone Forms: Medications to Prevent Stroke, [facility]/Other Patient Handouts: Diabetes Type 2 Coping, Diabetes Exercise Benefits, Diabetes Meal Planning Discharge Orders: Discharge Order (Routine); Ordered 05/05/19 Ordered By: Garfield Torre Admission Data Admit Date/Time: 05/03/19 12:20 Attending Provider: Garfield Torre Admit Provider: Raul Perrin Primary Care Provider: Tamir Salmeron Other Providers: Raul Perrin ; Atul Molina ; Alexi Rodriguez Service: Telemetry Other Interventions: Discharge Summary Assessment (RN) Last Done: 05/05/19 15:12 DC Date/Time DO NOT enter until pt leaves facility: 05/05/19 16:11
--- NOTE | 2019-05-08 12:54 | Pharmacy Report ---
Pharmacist Post D/C Phone Note - Phone Note: Date of phone call: May 08, 2019. Individual with whom pharmacist spoke to: JB HUSSEIN The following questions were reviewed during the phone call with responses listed below each: Can you tell me the medications that you are currently taking as well as when and how you take each medication? -See Table Below When have you missed any doses of your medications? - None What side effects are you having from your medications, specifically, the new medications you were started on? - None What questions do you have about your medications? - None - he confirmed with me he is taking all 6 new medications, and will only take the clopidogrel for 21 days, then stop, he said his helps him with this. What problems are you having obtaining your medications? - None When is your next appointment with your primary care doctor? - PCP Dr. Salmeron on 05/12 @ 12:15 PM Additional comments: - Patient was very pleasant, had just come home from a walk, had some difficultly hearing but otherwise in great spirits and grateful for our help. As per the Pharmacist Discharge Counseling for Stroke Patients Protocol, this phone call has been completed within 72 hours of discharge. Thank you for allowing us to be involved in the care of this patient. - Home Medications: New Rx's Medication Instructions Recorded amlodipine [Norvasc] 5 mg PO QAM 30 Days #30 tab 05/05/19 aspirin [Ecotrin Low Strength] 81 mg PO QAM 30 Days #30 tab 05/05/19 atorvastatin 40 mg PO QAM 30 Days #30 tab 05/05/19 clopidogrel 75 mg PO QAM 30 Days #30 tab 05/05/19 lisinopril 10 mg PO QAM 30 Days #30 tab 05/05/19 metoprolol succinate 25 mg PO QAM 30 Days #30 tab 05/05/19
== END 2019-05-05 16:11 | disposition home or self-care (01) | DRG 65 ==
LOC: ED 11:02 → 1E 12:20 → 2S 05-04 17:42